=== PATIENT | male | born 1970 | race Hispanic/Latino ===

== ENCOUNTER 2018-12-05 13:05 | Emergency (ER) | payer OTHER ==
[2018-12-05 14:18] LABS: Absolute Lymphocytes (CBC) 1.6 K/uL (0.7-4.9); Basophils % 0.3 % (0-1.3); Hematocrit 42.8 % (39.6-49.0); Lymphocytes % 10.6 % (15.3-44.8); MPV 7.8 fL (7.6-11.3); RBC Red Blood Cell Count 6.01 M/uL (4.33-5.43)
[2018-12-05] MEDS ORDERED: NA CHLORIDE 0.9% 500 ML ONE (14:25)
[2018-12-05] MEDS ORDERED: ONDANSETRON 4 MG/2 ML VIAL ONE (14:25)
[2018-12-05] MEDS ORDERED: FAMOTIDINE 20 MG/2 ML VIAL IV ONE (14:25)
[2018-12-05] MEDS ORDERED: METHYLPREDNISOLONE 125 MG INJ ONE (14:25)
[2018-12-05] MEDS ORDERED: MORPHINE 2 MG/ML SYR ONE (14:25)
[2018-12-05 14:34] LABS: Albumin 4.1 g/dL (3.4-5.0); Bilirubin Direct 0.3 mg/dL (0-0.2); Bilirubin Total 1.5 mg/dL (0.2-1.0); Potassium 3.7 mmol/L (3.5-5.1)
--- NOTE | 2018-12-05 15:19 | RAD REPORT ---
EXAM DESCRIPTION: CT - Abdomen Pelvis W Contrast - 12/05/2018 2:58 pm CLINICAL HISTORY: ABD PAIN, history of Crohn's, history of of abdominal resection COMPARISON: None. TECHNIQUE: Biphasic, helical CT imaging of the abdomen and pelvis was performed following 100 ml non -ionic IV contrast. No oral contrast administered. All CT scans are performed using dose optimization technique as appropriate and may include automated exposure control or mA/KV adjustment according to patient size. FINDINGS: No suspicious findings in the lung bases. The liver, spleen, and pancreas show no suspicious findings. Gallbladder and biliary tree are also wi thout suspicious finding. Symmetric renal function is seen with no hydronephrosis or suspicious renal mass. No pyelonephritis o r acute parenchymal process. No bladder abnormalities. No adrenal abnormalities. No mass or bulky lymphadenopathy. Fat extends into the origin of the left inguinal canal. No suspicious bony findings. Large amount of retained fluid is present distending the stomach. No gastric wall thickening or mass. No gastric outlet obstruction. Duodenum is normal in size. No appendicitis findings. The appendix ma y be absent. No acute colon finding identifiable. No significant jejunum finding seen. There is dilat ion of the ileum. The distal ileum over 10-15 centimeter shows wall thickening with stranding in the adjacent fat. The terminal ileum is normal in diameter but does show circumferential wall thickening. There is stranding in this region as well. Cecum does not appear to be involved. IMPRESSION: Small bowel obstruction pattern is evident involving the ileum. 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 This would be consistent with active Crohn 's disease. Retained fluid dilating the stomach likely gastroparesis. No free air, abscess or surgically emergent finding.
--- NOTE | 2018-12-05 15:54 | ER ---
Nurse's Notes [facility] Name: Dank Helton Age: 48 yrs Sex: Male : 1970 Arrival Date: 12/05/2018 Time: 13:10 Bed 15 Private MD: Diagnosis: Crohn's disease of both small and large intestine with intestinal obstruction Presentation: 12/05 13:27 Presenting complaint: N/V/D, abdominal pain, and palpitations since this morning. hb Denies chest pain/SOB. Not tolerating fluids. Hx of Crohn's, last flare up was in 2013. Transition of care: patient was not received from another setting of care. Onset of symptoms was December 04, 2018. Risk Assessment: Do you want to hurt yourself or someone else? Patient reports no desire to harm self or others. Initial Sepsis Screen: Does the patient meet any 2 criteria? No. Patient's initial sepsis screen is negative. Does the patient have a suspected source of infection? No. Patient's initial sepsis screen is negative. Care prior to arrival: None. 13:27 Method Of Arrival: Ambulatory hb 13:27 Acuity: NITA 3 hb Historical: - Allergies: 13:29 No Known Allergies; hb - Home Meds: 13:29 None [Active]; hb - PMHx: 13:29 Crohn's; hb - PSHx: 13:29 Abdominal resection; hb - Immunization history:: Adult Immunizations up to date. - Social history:: Smoking status: Patient/guardian denies using tobacco. - Ebola Screening: : No symptoms or risks identified at this time. Screenin:22 Abuse screen: Denies threats or abuse. Denies injuries from another. Nutritional ph screening: No deficits noted. Tuberculosis screening: No symptoms or risk factors identified. Fall Risk None identified. Assessment: 14:00 General: Appears in no apparent distress. uncomfortable, slender, well groomed, ph Behavior is calm, cooperative, appropriate for age, Denies fever. Pain: Complains of pain in left upper quadrant and left lower quadrant. Neuro: Level of Consciousness is awake, alert, obeys commands, Oriented to person, place, time, situation. Cardiovascular: Capillary refill < 3 seconds in bilateral fingers Patient's skin is warm and dry. Respiratory: Airway is patent Respiratory effort is even, unlabored. GI: Abdomen is flat, non-distended, Bowel sounds present X 4 quads. Abdomen is tender to palpation in left upper quadrant and left lower quadrant Reports gaseousness, nausea, Patient currently denies diarrhea, vomiting. Derm: Skin is intact, is healthy with good turgor, Skin is pink, warm \T\ dry. Musculoskeletal: Circulation, motion, and sensation intact. Range of motion: intact in all extremities. 15:00 Reassessment: Patient appears in no apparent distress at this time. Patient and/or ph family updated on plan of care and expected duration. Pain level reassessed. Patient is alert, oriented x 3, equal unlabored respirations, skin warm/dry/pink. 16:00 Reassessment: Patient appears in no apparent distress at this time. Patient and/or ph family updated on plan of care and expected duration. Pain level reassessed. Patient is alert, oriented x 3, equal unlabored respirations, skin warm/dry/pink. 17:20 Reassessment: Patient appears in no apparent distress at this time. Patient and/or ph family updated on plan of care and expected duration. Pain level reassessed. Patient is alert, oriented x 3, equal unlabored respirations, skin warm/dry/pink. Report called to Travis BRAN at [facility], transfer form signed, awaiting EMS for transport. 18:20 Reassessment: Patient appears in no apparent distress at this time. Patient and/or ph family updated on plan of care and expected duration. Pain level reassessed. Patient is alert, oriented x 3, equal unlabored respirations, skin warm/dry/pink. Pt resting comfortably, awaiting EMS for transfer. 19:30 Reassessment: Patient appears in no apparent distress at this time. Patient is alert, lp1 oriented x 3, equal unlabored respirations, skin warm/dry/pink. Patient and aware of pending transfer to [facility] Patient denies pain at this time. 19:54 Reassessment: [facility] at bedside for transfer. lp1 Vital Signs: 13:29 BP 129 / 95; Pulse 77; Resp 16; Temp 97.9; Pulse Ox 100% on R/A; Weight 61.23 kg; hb Height 5 ft. 3 in. (160.02 cm); Pain 7/10; 14:41 BP 118 / 86; Pulse 78; Resp 17; Temp 98.3(O); Pulse Ox 98% on R/A; mh5 15:43 BP 112 / 79; Pulse 63; Resp 16; Temp 98.5(O); Pulse Ox 99% on R/A; mh5 17:07 BP 121 / 86; Pulse 65; Resp 18; Temp 97.8; Pulse Ox 99% ; ph 18:21 BP 121 / 76; Pulse 64; Resp 18; Pulse Ox 99% on R/A; ph 19:30 BP 116 / 74; Pulse 64; Resp 18; Pulse Ox 98% on R/A; lp1 19:58 BP 111 / 76; Pulse 78; Resp 16; Pulse Ox 98% on R/A; lp1 13:29 Body Mass Index 23.91 (61.23 kg, 160.02 cm) hb ED Course: 13:10 Patient arrived in ED. mr 13:28 Triage completed. hb 13:29 Arm band placed on. hb 13:39 Nirmal Park MD is Attending Physician. kdr 13:42 Lexii Dotson RN is Primary Nurse. ph 14:08 Initial lab(s) drawn, by de, sent to lab. Inserted saline lock: 20 gauge in right mh5 antecubital area, using aseptic technique. Blood collected. 14:09 Patient has correct armband on for positive identification. Placed in gown. Bed in low mh5 position. Call light in reach. Adult w/ patient. Warm blanket given. Pulse ox on. NIBP on. 14:09 Basic Metabolic Panel Sent. [facility] 14:09 CBC with Diff Sent. [facility] 14:09 Creatinine for Radiology Sent. [facility] 14:09 Hepatic Function Sent. [facility] 14:09 Lipase Sent. [facility] 15:03 CT Abd/Pelvis - IV Contrast Only In Process Unspecified. EDMS 15:22 Urine collected: clean catch specimen, clear. 5 18:22 No provider procedures requiring assistance completed. Patient transferred, IV remains ph in place. Administered Medications: 14:45 Drug: Zofran 4 mg Route: IVP; Site: right antecubital; ph 17:22 Follow up: Response: No adverse reaction; Nausea is decreased ph 14:45 Drug: NS 0.9% 500 ml Route: IV; Rate: bolus; Site: right antecubital; ph 17:22 Follow up: Response: No adverse reaction; IV Status: Completed infusion ph 14:46 Drug: SOLU-Medrol 125 mg Route: IVP; Site: right antecubital; ph 17:22 Follow up: Response: No adverse reaction ph 14:47 Drug: Pepcid 20 mg Route: IVP; Site: right antecubital; ph 17:22 Follow up: Response: No adverse reaction ph 14:48 Drug: morphine 2 mg {Note: RASS 0.} Route: IVP; Site: right antecubital; ph 15:15 Follow up: Response: No adverse reaction; Pain is decreased; RASS: Drowsy (-1) ph 16:55 Drug: LevaQUIN 500 mg Volume: 100 ml; Route: IVPB; Infused Over: 60 mins; Site: right ph antecubital; 18:00 Follow up: Response: No adverse reaction; IV Status: Completed infusion ph 17:08 Drug: Flagyl 500 mg Volume: 100 ml; Route: IVPB; Rate: 200 ml/hr; Infused Over: 30 ph mins; Site: right antecubital; 17:40 Follow up: Response: No adverse reaction; IV Status: Completed infusion ph Outcome: 15:53 ER care complete, transfer ordered by . kdr 19:57 Condition: stable lp1 19:57 Instructed on the need for transfer. 19:58 Transferred by ground EMS to [facility], Transfer form completed. lp1 X-rays sent w/ patient. Note: By [facility] Medic 56 20:00 Patient left the ED. lp1 Signatures: Dispatcher [employer] EDMS Nirmal Park MD MD kdr Rivera, Mary mr Rosa Perrin, RN RN lp1 Lexii Dotson RN RN Lizet Patel RN RN Tamara Boykin [facility] Corrections: (The following items were deleted from the chart) 13:32 13:27 Presenting complaint: N/V/D, abdominal pain, and palpitations since this morning. hb Denies chest pain/SOB. Not tolerating fluids hb 14:58 04:47 Pepcid 20 mg IVP in right antecubital ph ph
--- NOTE | 2018-12-05 15:56 | EDPHYS ---
Physician Documentation [facility] Name: Dank Helton Age: 48 yrs Sex: Male : 1970 Arrival Date: 12/05/2018 Time: 13:10 Bed 15 Private MD: ED Physician Nirmal Park HPI: 12/05 18:30 This 48 yrs old Male presents to ER via Ambulatory with complaints of kdr Abdominal Pain. 18:30 The patient presents with abdominal pain in the epigastric area, that is diffuse. kdr Onset: The symptoms/episode began/occurred this morning. The symptoms do not radiate. Associated signs and symptoms: Pertinent positives: nausea, vomiting, and diarrhea, nausea and vomiting. The symptoms are described as achy, crampy, intermittent, vague. Modifying factors: The symptoms are alleviated by nothing, remaining still, the symptoms are aggravated by movement, touching the area. Severity of pain: At its worst the pain was moderate severe. The patient has experienced similar episodes in the past, chronically, Last time was about six years ago. The patient has not recently seen a physician. Historical: - Allergies: 13:29 No Known Allergies; hb - Home Meds: 13:29 None [Active]; hb - PMHx: 13:29 Crohn's; hb - PSHx: 13:29 Abdominal resection; hb - Immunization history:: Adult Immunizations up to date. - Social history:: Smoking status: Patient/guardian denies using tobacco. - Ebola Screening: : No symptoms or risks identified at this time. ROS: 18:30 Constitutional: Negative for fever, chills, and weight loss, Eyes: Negative for injury, kdr pain, redness, and discharge, ENT: Negative for injury, pain, and discharge, Neck: Negative for injury, pain, and swelling, Cardiovascular: Negative for chest pain, palpitations, and edema, Respiratory: Negative for shortness of breath, cough, wheezing, and pleuritic chest pain, Back: Negative for injury and pain, : Negative for injury, bleeding, discharge, and swelling, MS/Extremity: Negative for injury and deformity, Skin: Negative for injury, rash, and discoloration, Neuro: Negative for headache, weakness, numbness, tingling, and seizure activity. Psych: Negative for depression, anxiety, suicide ideation, homicidal ideation, and hallucinations, Allergy/Immunology: Negative for hives, rash, and allergies, Endocrine: Negative for neck swelling, polydipsia, polyuria, polyphagia, and marked weight changes, Hematologic/Lymphatic: Negative for swollen nodes, abnormal bleeding, and unusual bruising. 18:30 Abdomen/GI: Positive for abdominal pain, nausea, vomiting, and diarrhea, of the abdomen diffusely. Exam: 18:30 Constitutional: This is a well developed, well nourished patient who is awake, alert, kdr and in no acute distress. Head/Face: Normocephalic, atraumatic. Eyes: Pupils equal round and reactive to light, extra-ocular motions intact. Lids and lashes normal. Conjunctiva and sclera are non-icteric and not injected. Cornea within normal limits. Periorbital areas with no swelling, redness, or edema. Neck: Trachea midline, no thyromegaly or masses palpated, and no cervical lymphadenopathy. Supple, full range of motion without nuchal rigidity, or vertebral point tenderness. No Meningismus. Chest/axilla: Normal chest wall appearance and motion. Nontender with no deformity. No lesions are appreciated. Cardiovascular: Regular rate and rhythm with a normal S1 and S2. No gallops, murmurs, or rubs. Normal PMI, no JVD. No pulse deficits. Respiratory: Lungs have equal breath sounds bilaterally, clear to auscultation and percussion. No rales, rhonchi or wheezes noted. No increased work of breathing, no retractions or nasal flaring. Back: No spinal tenderness. No costovertebral tenderness. Full range of motion. Skin: Warm, dry with normal turgor. Normal color with no rashes, no lesions, and no evidence of cellulitis. MS/ Extremity: Pulses equal, no cyanosis. Neurovascular intact. Full, normal range of motion. Neuro: Awake and alert, GCS 15, oriented to person, place, time, and situation. Cranial nerves II-XII grossly intact. Motor strength 5/5 in all extremities. Sensory grossly intact. Cerebellar exam normal. Normal gait. Psych: Awake, alert, with orientation to person, place and time. Behavior, mood, and affect are within normal limits. 18:30 Abdomen/GI: Inspection: abdomen appears normal, Bowel sounds: diminished, Palpation: soft, moderate abdominal tenderness, rebound tenderness, is elicited in all quadrants, voluntary guarding, is elicited in all quadrants. Vital Signs: 13:29 BP 129 / 95; Pulse 77; Resp 16; Temp 97.9; Pulse Ox 100% on R/A; Weight 61.23 kg; hb Height 5 ft. 3 in. (160.02 cm); Pain 7/10; 14:41 BP 118 / 86; Pulse 78; Resp 17; Temp 98.3(O); Pulse Ox 98% on R/A; mh5 15:43 BP 112 / 79; Pulse 63; Resp 16; Temp 98.5(O); Pulse Ox 99% on R/A; mh5 17:07 BP 121 / 86; Pulse 65; Resp 18; Temp 97.8; Pulse Ox 99% ; ph 18:21 BP 121 / 76; Pulse 64; Resp 18; Pulse Ox 99% on R/A; ph 19:30 BP 116 / 74; Pulse 64; Resp 18; Pulse Ox 98% on R/A; lp1 19:58 BP 111 / 76; Pulse 78; Resp 16; Pulse Ox 98% on R/A; lp1 13:29 Body Mass Index 23.91 (61.23 kg, 160.02 cm) hb MDM: 15:53 Patient medically screened. kdr 18:30 Data reviewed: vital signs, nurses notes, lab test result(s), radiologic studies. kdr Counseling: I had a detailed discussion with the patient and/or guardian regarding: the historical points, exam findings, and any diagnostic results supporting the discharge/admit diagnosis, lab results, radiology results, the need to transfer to another facility. Physician consultation: Jones Tan MD regarding consult, patient's condition, after a discussion of the case, a recommendation for transfer for higher level of care is made. 12/05 13:52 Order name: Basic Metabolic Panel; Complete Time: 15:44 kdr 12/05 13:52 Order name: CBC with Diff; Complete Time: 15:44 kdr 12/05 13:52 Order name: Creatinine for Radiology; Complete Time: 15:44 kdr 12/05 13:52 Order name: Hepatic Function; Complete Time: 15:44 kdr 12/05 13:52 Order name: Lipase; Complete Time: 15:44 kdr 12/05 15:16 Order name: Urine Dipstick--Ancillary (enter results); Complete Time: 16:30 bd 12/05 13:52 Order name: CT Abd/Pelvis - IV Contrast Only; Complete Time: 15:44 kdr 12/05 13:52 Order name: IV Saline Lock; Complete Time: 14:09 kdr 12/05 13:52 Order name: Labs collected and sent; Complete Time: 14:09 kdr 12/05 13:52 Order name: Urine Dipstick-Ancillary (obtain specimen); Complete Time: 17:22 kdr Administered Medications: 14:45 Drug: Zofran 4 mg Route: IVP; Site: right antecubital; ph 17:22 Follow up: Response: No adverse reaction; Nausea is decreased ph 14:45 Drug: NS 0.9% 500 ml Route: IV; Rate: bolus; Site: right antecubital; ph 17:22 Follow up: Response: No adverse reaction; IV Status: Completed infusion ph 14:46 Drug: SOLU-Medrol 125 mg Route: IVP; Site: right antecubital; ph 17:22 Follow up: Response: No adverse reaction ph 14:47 Drug: Pepcid 20 mg Route: IVP; Site: right antecubital; ph 17:22 Follow up: Response: No adverse reaction ph 14:48 Drug: morphine 2 mg {Note: RASS 0.} Route: IVP; Site: right antecubital; ph 15:15 Follow up: Response: No adverse reaction; Pain is decreased; RASS: Drowsy (-1) ph 16:55 Drug: LevaQUIN 500 mg Volume: 100 ml; Route: IVPB; Infused Over: 60 mins; Site: right ph antecubital; 18:00 Follow up: Response: No adverse reaction; IV Status: Completed infusion ph 17:08 Drug: Flagyl 500 mg Volume: 100 ml; Route: IVPB; Rate: 200 ml/hr; Infused Over: 30 ph mins; Site: right antecubital; 17:40 Follow up: Response: No adverse reaction; IV Status: Completed infusion ph Disposition: 12/05/18 15:[address] [facility]. Diagnosis is Crohn's disease of both small and large intestine with intestinal obstruction. - Reason for transfer: Higher level of care. - Accepting physician is Hospitalist. - Condition is Serious. - Problem is an acute exacerbation. - Symptoms have improved. Signatures: Dispatcher [employer] EDGA Nirmal Park MD MD kdr Rosa Perrin RN RN lp1 Lexii Dotson RN RN Lizet Patel RN RN Corrections: (The following items were deleted from the chart) 20:00 15:53 12/05/2018 15:[address] [facility]. Diagnosis is lp1 Crohn's disease of both small and large intestine with intestinal obstruction. Reason for transfer: Higher level of care. Accepting physician is Hospitalist. Condition is Serious. Problem is an acute exacerbation. Symptoms have improved. kdr
[2018-12-05 16:14] LABS: Urine Blood TRACE (NEG); Urine Glucose NEGATIVE (NEG); Urine Protein NEGATIVE (NEG); Urine Specific Gravity 1.015 (1.005-1.030)
[2018-12-05] MEDS ORDERED: Levofloxacin500mg IV 500 MG/100 ML BAG IV ONE (16:59)
[2018-12-05] MEDS ORDERED: METRONIDAZOLE 500mg IVPB 500 MG/100 ML BAG IV ONE (17:00)
[2018-12-06 00:36] VITALS: TEMP 97.8
[2018-12-06 00:39] VITALS: O2SAT 98
[2018-12-06 00:40] VITALS: BP 111/76
== END 2018-12-05 20:00 | disposition short-term general hospital (02) ==
LOC: ER 13:05
DX: K50.912 Crohn's disease, unspecified, with intestinal obstruction (principal)
CPT/HCPCS: 85025; 80048; 36415; 80076; 81003; 83690; 74177; Q9967; J2270; J2930; J2405; 96361; 96365; 96375; 99285

== ENCOUNTER 2019-07-19 19:46 | Emergency (ER) | payer OTHER ==
--- OUTSIDE RECORDS SUMMARY | 2019-07-19 19:48 | XMS REPORT ---
:1970 Author Organization [facility] t Address [address] [place] [address] Care Team Providers Name Role Phone JAMISON FERNANDEZ Unavailable Unavailable Problems This patient has no known problems. Allergies, Adverse Reactions, Alerts This patient has no known allergies or adverse reactions. Medications This patient has no known medications. Results Test Description Test Time Test Comments Text Results Atomic Results Result Comments TISSUE EXAM 2018-12-16 12:17:00 Surgical Pathology Re port Case: [id number] Authorizing Provider: Vaughn Calvo Collected: [id number] Ordering Location: [address] Received: [id number] SERVICE Pathologist: Mago Weeks MD Specimens: A) - Biopsy, Te rminal Ileum, terminal ileum bx B) - Cecu m, cecum bx C) - Large Intestine, Colon - Right/Ascending, ascending c olon bx D) - Large Intestine, Colon - Transverse, transverse colon bx E) - Large Intestine, Colon - Left/Descending, descending / sigmoid colon bx F) - Rectu m, rectum bx A. TERMINAL ILEUM, BIOPSY : - NONSPECIFIC ACTIVE ILEITIS (SEE COMMENT) B. COLON, CECUM, BIOPSY: - NONSPECIFIC ACTIV E COLITIS (SEE COMMENT)C. COLON, RIGHT/ASCE NDING, BIOPSY: - NO SIGNIFICANT HISTOPATHOLOGIC CHANGED. COLON, TRANSVERSE, BIOPSY: - NO SI GNIFICANT HISTOPATHOLOGIC CHANGEE. COL ON, DESCENDING/SIGMOID, BIOPSY: - NO SIGNIFICANT HISTOPATHOLOGIC CHANGEF. REC KING, BIOPSY: - NO SIGNIFICANT HISTOPATHOLOGIC CHANGE Signing Pathologist Direct Phone Kacy e: [phone] s igned by Mago Gentile MD on 12/16/2018 at 12:17 PMA-B. The ileal biopsy shows active in flammation. Mild crypt distortion and villous blunting are seen, however other features of ch ronicity such as granulomas and metaplastic c hanges are not seen. In specimen B, except for a rare bifid crypt, no other features of chronicity are seen.C-F. There is no evidence of active or chronic injury.The histologic changes are not c lassic for chronic inflammatory bowel disease, however the same cannot be excluded if this r epresents histologic resolution after treatment. Clinical and endoscopic correlation is recommended.[id number] : Colonoscopy, colon with ANESPre and postop diag nosis: Crohn's disease with complication, u nspecified gastrointestinal tract locat ion. A. Biopsy, terminal ileum, terminal ile um bx; B. Cecum, cecum biopsy; C. Large intes mando, colon, right/ascending, ascending c olon bx; D. Large intestine, colon - transvers e, transverse colon bx; E. Large intestine, colo n - left/descending, descending/sigmoid colon bx; F. Rectum, rectum bxA. Received in formalin la beled with the patient's name, accession nu mber and "biopsy, terminal ileum, terminal ile um bx" is a 0.6 x 0.3 x 0.2 cm aggregate of multip le pieces of chan-brown, irregular, mucosa l-covered tissues ranging from 0.3 x 0.3 x 0.2 cm to 0.1 x 0.1 x 0.1 cm. The specimen is subm itted in toto following filtration in paul ette A1. B. Received in formalin labeled with the patient's name, accession number and "cecum, cecum bx" are two pieces of chan-brown, irregul ar, mucosal-covered tissue measuring 0.3 x 0.3 x 0.1 cm and 0.2 x 0.1 x 0.1 cm. The specimen is reid bmitted in toto following filtration in paul ette B1. C. Received in formalin labeled with the patient's name, accession number and "large intestine, colon - right/ascending, ascending c olon bx" is a 0.6 x 0.5 x 0.1 cm aggregate of fi ve pieces of chan-brown, irregular, mucosa l-covered tissue. The specimen is submitted in tot o following filtration in cassette C1. D . Received in formalin labeled with the donaldo norris's name, accession number and "large intestine, colon - transverse, transverse colon bx" are three pieces of chan-brown, irregular, muc osal-covered tissue ranging from 0.4 x 0.2 x 0.2 cm to 0.3 x 0.1 x 0.1 cm and 0.7 x 0.3 x 0.2 c m in aggregate. The specimen is submitted in tot o following filtration in cassette D1. E . Received in formalin labeled with the pa tient's name, accession number and "large intestine, colon - left/descending, descending/ sigmoid colon bx" is a 0.9 x 0.3 x 0.1 cm aggrega te of multiple pieces of chan-brown, irregular, muc osal-covered tissue The specimen is submitted in toto following filtration in cassette E1. F . Received in formalin labeled with the pa chrisnt's name, accession number and "rectum , rectum bx" is a 0.8 x 0.3 x 0.1 cm aggregate of four pieces of chan-brown, irregular, mucosa l-covered tissue. The specimen is submitted in toto following filtration in cassette F1. SS/plPerformed.The interpretation of this case included the use of immunohistochemistry or spec ial stains.Control Slides Examined: In-house k nown positive controls were evaluated chance burnett with the test tissue. These control slide s run alongside of the patients sample show tim ropriate staining. Internal positive and negati ve controls when available are evaluated Immu nohistochemistry technical testing was perfor med at [facility] where it was developed and its per formance characteristics were determi rebeka. It has not been cleared or approved by the U .S. Food and Drug Administration. The FDA has determined that such clearance or approval is not necessary. The test is used for clinical purpose s. It should not be regarded as investigational or for research. This laboratory is certified unde r the Clinical Laboratory Improvement Amend ments of 1988 (CLIA-88) as qualified to pe rform high complexity clinical laboratory testing. OVA AND PARASITE EXAMINATION 2018-12-11 07:34:00 Test Item Value Reference Range Comments DIRECT SMEAR - O\\T\\P (BEAKER) No ova or parasites seen No ova or parasites seen (test code = 196) CONCENTRATE SMEAR - O\\T\\P No ova or parasites seen No ova or par asites seen (BEAKER) (test code = 247) TRICHROME SMEAR - O\\T\\P (BEAKER) No ova or parasites seen No ova or parasites seen (test code = 248) STOOL CULTURE + SHIGA [id number] 12:10:00 Test Item Value Reference Range Comments CULTURE (BEAKER) (test code No Salmonella, Shigella or = 1095) Campylobacter isolated Unable to test for Shiga Toxin 1 due to insufficient growth of specimen.Unable to test for Shiga Toxin 2 due to insufficient growth of specimen.CBC W/PLT COUNT & AUTO [id number] 08:52:00 Test Item Value Reference Range Comments WHITE BLOOD CELL COUNT (BEAKER) (test code = 7.9 K/ L 3.5 -10.5 775) RED BLOOD CELL COUNT (BEAKER) (test code = 761) 5.57 M/ L 4.63-6.08 HEMOGLOBIN (BEAKER) (test code = 410) 12.9 GM/DL 13.7-17.5 HEMATOCRIT (BEAKER) (test code = 411) 41.1 % 40.1-51.0 MEAN CORPUSCULAR VOLUME (BEAKER) (test code = 73.8 fL 79 .0-92.2 753) MEAN CORPUSCULAR HEMOGLOBIN (BEAKER) (test code 23.2 pg 25.7-32.2 = 751) MEAN CORPUSCULAR HEMOGLOBIN CONC (BEAKER) (test 31.4 GM/DL 32.3-36.5 code = 752) RED CELL DISTRIBUTION WIDTH (BEAKER) (test code 14.6 % 11.6-14.4 = 412) PLATELET COUNT (BEAKER) (test code = 756) 254 K/CU MM 150-45 0 MEAN PLATELET VOLUME (BEAKER) (test code = 754) 10.2 fL 9.4-12.4 NUCLEATED RED BLOOD CELLS (BEAKER) (test code = 0 /100 WBC 0-0 413) NEUTROPHILS RELATIVE PERCENT (BEAKER) (test code 83 % = 429) LYMPHOCYTES RELATIVE PERCENT (BEAKER) (test code 15 % = 430) MONOCYTES RELATIVE PERCENT (BEAKER) (test code = 2 % 431) EOSINOPHILS RELATIVE PERCENT (BEAKER) (test code 0 % = 432) BASOPHILS RELATIVE PERCENT (BEAKER) (test code = 0 % 437) NEUTROPHILS ABSOLUTE COUNT (BEAKER) (test code = 6.54 K/ L 1.78-5.38 670) LYMPHOCYTES ABSOLUTE COUNT (BEAKER) (test code = 1.15 K/ L 1.32-3.57 414) MONOCYTES ABSOLUTE COUNT (BEAKER) (test code = 0.12 K/ L 0 .30-0.82 415) EOSINOPHILS ABSOLUTE COUNT (BEAKER) (test code = 0.00 K/ L 0.04-0.54 416) BASOPHILS ABSOLUTE COUNT (BEAKER) (test code = 0.01 K/ L 0 .01-0.08 417) IMMATURE GRANULOCYTES-RELATIVE PERCENT (BEAKER) 1 % 0-1 (test code = 2801) [id number] 08:41:00 Test Item Value Reference Range Comments PHOSPHORUS (BEAKER) (test code = 604) 3.7 mg/dL 2.3-4.7 [id number] 08:41:00 Test Item Value Reference Range Comments MAGNESIUM (BEAKER) (test code = 627) 2.0 mg/dL 1.6-2.6 COMPREHENSIVE METABOLIC [id number] 08:41:00 Test Item Value Reference Range Comments TOTAL PROTEIN (BEAKER) 6.6 gm/dL 6.0-8.3 (test code = 770) ALBUMIN (BEAKER) (test 3.8 g/dL 3.5-5.0 code = 1145) ALKALINE PHOSPHATASE 67 U/L 40-150 (BEAKER) (test code = 346) BILIRUBIN TOTAL (BEAKER) 2.4 mg/dL 0.2-1.2 (test code = 377) SODIUM (BEAKER) (test code 136 meq/L 136-145 = 381) POTASSIUM (BEAKER) (test 4.2 meq/L 3.5-5.1 code = 379) CHLORIDE (BEAKER) (test 106 meq/L 98-107 code = 382) CO2 (BEAKER) (test code = 22 meq/L 22-29 355) BLOOD UREA NITROGEN 11 mg/dL 7-21 (BEAKER) (test code = 354) CREATININE (BEAKER) (test 0.82 mg/dL 0.57-1.25 code = 358) GLUCOSE RANDOM (BEAKER) 109 mg/dL 70-105 (test code = 652) CALCIUM (BEAKER) (test 8.7 mg/dL 8.4-10.2 code = 697) AST (SGOT) (BEAKER) (test 14 U/L 5-34 code = 353) ALT (SGPT) (BEAKER) (test 12 U/L 6-55 code = 347) EGFR (BEAKER) (test code = 100 mL/min/1.73 sq ES TIMATED GFR IS NOT 1092) m ACCURATE CREA TININE CLEARANCE IN PRE DICTING GLOMERULAR FILTR ATION RATE. ESTIMATED GFR IS NOT APPLICABLE F OR DIALYSIS PATIENT S. Specimen slightly ictericHEPATITIS B [id number] 08:37:00 Test Item Value Reference Range Comments HEPATITIS B CORE TOTAL ANTIBODY (BEAKER) (test Nonreactive N onreactive code = 497) HEPATITIS B SURFACE ANTIBODY (BEAKER) (test code < mIU/mL <8.0 = 647) HEPATITIS B SURFACE ANTIGEN (2) (BEAKER) (test Nonreactive N onreactive code = 2585) HEPATITIS C [id number] 08:33:00 Test Item Value Reference Range Comments HEPATITIS C ANTIBODY (BEAKER) (test code = 367) Nonreactive Nonreactive [id number] 07:51:00 Test Item Value Reference Range Comments PHOSPHORUS (BEAKER) (test code = 604) 3.0 mg/dL 2.3-4.7 [id number] 07:51:00 Test Item Value Reference Range Comments MAGNESIUM (BEAKER) (test code = 627) 2.0 mg/dL 1.6-2.6 COMPREHENSIVE METABOLIC [id number] 07:51:00 Test Item Value Reference Range Comments TOTAL PROTEIN (BEAKER) 6.5 gm/dL 6.0-8.3 (test code = 770) ALBUMIN (BEAKER) (test 3.8 g/dL 3.5-5.0 code = 1145) ALKALINE PHOSPHATASE 64 U/L 40-150 (BEAKER) (test code = 346) BILIRUBIN TOTAL (BEAKER) 2.6 mg/dL 0.2-1.2 (test code = 377) SODIUM (BEAKER) (test code 140 meq/L 136-145 = 381) POTASSIUM (BEAKER) (test 3.7 meq/L 3.5-5.1 code = 379) CHLORIDE (BEAKER) (test 107 meq/L 98-107 code = 382) CO2 (BEAKER) (test code = 25 meq/L 22-29 355) BLOOD UREA NITROGEN 12 mg/dL 7-21 (BEAKER) (test code = 354) CREATININE (BEAKER) (test 0.93 mg/dL 0.57-1.25 code = 358) GLUCOSE RANDOM (BEAKER) 82 mg/dL 70-105 (test code = 652) CALCIUM (BEAKER) (test 8.7 mg/dL 8.4-10.2 code = 697) AST (SGOT) (BEAKER) (test 12 U/L 5-34 code = 353) ALT (SGPT) (BEAKER) (test 10 U/L 6-55 code = 347) EGFR (BEAKER) (test code = 87 mL/min/1.73 sq m E STIMATED GFR IS NOT 1092) ACCURATE CREA TININE CLEARANCE IN PRE DICTING GLOMERULAR FILTR ATION RATE. ESTIMATED GFR IS NOT APPLICABLE F OR DIALYSIS PATIENT S. Specimen slightly ictericCBC W/PLT COUNT & AUTO [id number] 06:27:00 Test Item Value Reference Range Comments WHITE BLOOD CELL COUNT (BEAKER) (test code = 8.2 K/ L 3.5 -10.5 775) RED BLOOD CELL COUNT (BEAKER) (test code = 761) 5.34 M/ L 4.63-6.08 HEMOGLOBIN (BEAKER) (test code = 410) 12.3 GM/DL 13.7-17.5 HEMATOCRIT (BEAKER) (test code = 411) 39.6 % 40.1-51.0 MEAN CORPUSCULAR VOLUME (BEAKER) (test code = 74.2 fL 79 .0-92.2 753) MEAN CORPUSCULAR HEMOGLOBIN (BEAKER) (test code 23.0 pg 25.7-32.2 = 751) MEAN CORPUSCULAR HEMOGLOBIN CONC (BEAKER) (test 31.1 GM/DL 32.3-36.5 code = 752) RED CELL DISTRIBUTION WIDTH (BEAKER) (test code 14.8 % 11.6-14.4 = 412) PLATELET COUNT (BEAKER) (test code = 756) 246 K/CU MM 150-45 0 MEAN PLATELET VOLUME (BEAKER) (test code = 754) 10.1 fL 9.4-12.4 NUCLEATED RED BLOOD CELLS (BEAKER) (test code = 0 /100 WBC 0-0 413) NEUTROPHILS RELATIVE PERCENT (BEAKER) (test code 48 % = 429) LYMPHOCYTES RELATIVE PERCENT (BEAKER) (test code 43 % = 430) MONOCYTES RELATIVE PERCENT (BEAKER) (test code = 7 % 431) EOSINOPHILS RELATIVE PERCENT (BEAKER) (test code 1 % = 432) BASOPHILS RELATIVE PERCENT (BEAKER) (test code = 1 % 437) NEUTROPHILS ABSOLUTE COUNT (BEAKER) (test code = 3.93 K/ L 1.78-5.38 670) LYMPHOCYTES ABSOLUTE COUNT (BEAKER) (test code = 3.51 K/ L 1.32-3.57 414) MONOCYTES ABSOLUTE COUNT (BEAKER) (test code = 0.56 K/ L 0 .30-0.82 415) EOSINOPHILS ABSOLUTE COUNT (BEAKER) (test code = 0.11 K/ L 0.04-0.54 416) BASOPHILS ABSOLUTE COUNT (BEAKER) (test code = 0.04 K/ L 0 .01-0.08 417) IMMATURE GRANULOCYTES-RELATIVE PERCENT (BEAKER) 0 % 0-1 (test code = 2801) STOOL PATH [id number] 15:52:00 Test Item Value Reference Range Comments PATHOGEN EXAM CHARGED (BEAKER) (test code = 2381) Done CMV PCR, [id number] 14:15:00 Test Item Value Reference Range Comments CMV VIRAL LOAD - NEGATIVE Negative or below the linear (BEAKER) (test code = 2558) range of the assay (<375 copies/mL) Cytomegalovirus (CMV) infection can cause significant disease in immunosuppressed patients. However,it is common for CMV to manifest as a limited infection which is of no clinical significance in immunosuppressed patients or in healthy individuals.Viral load measurements are helpful to identify clinical CMV infection and to guide the pre-emptive management of antiviral therapy. For treatment of CMVinfection due to reactivation in transplant recipients, a threshold between 4,000 and 5,000 copies/mL is suggested. For treatment of primary CMV infection, a lower threshold can be used.CMV infection may also be monitored using weekly serial measurements. Serial measurements of CMV DNA viral load canbe evaluated by identifying a 10-fold change, as well as assessing the CMV DNA viral load and the clinical context for each patient.The plasma CMV DNA viral load was detected using quantitative polymerase chain reaction and fluorescent monitoring of a specific hybridized probe. Genetic variation and ot her factors can affect the accuracy of nucleic acid testing. Therefore, the results should be interpreted in light of clinical data. A negative result may not exclude the presence of CMV disease.This test was developed and its performance characteristics determined by the [facility] Path ology Department, Section of Molecular Pathology. It has not been cleared or approved by the U.S. Food and Drug Administration (FDA), since FDA approval is not required for clinical use of the test. Validation was done as required by The Clinical Laboratory Improvement Amendments of 1988.BILIRUBIN, DIRECT 2018-12-07 11:14:00 Test Item Value Reference Range Comments BILIRUBIN DIRECT (BEAKER) (test code = 706) 0.8 mg/dL 0.1- 0.5 [id number] 07:13:00 Test Item Value Reference Range Comments PHOSPHORUS (BEAKER) (test code = 604) 3.3 mg/dL 2.3-4.7 [id number] 07:13:00 Test Item Value Reference Range Comments MAGNESIUM (BEAKER) (test code = 627) 2.1 mg/dL 1.6-2.6 COMPREHENSIVE METABOLIC [id number] 07:13:00 Test Item Value Reference Range Comments TOTAL PROTEIN (BEAKER) 6.4 gm/dL 6.0-8.3 (test code = 770) ALBUMIN (BEAKER) (test 3.7 g/dL 3.5-5.0 code = 1145) ALKALINE PHOSPHATASE 63 U/L 40-150 (BEAKER) (test code = 346) BILIRUBIN TOTAL (BEAKER) 2.5 mg/dL 0.2-1.2 (test code = 377) SODIUM (BEAKER) (test code 137 meq/L 136-145 = 381) POTASSIUM (BEAKER) (test 4.0 meq/L 3.5-5.1 code = 379) CHLORIDE (BEAKER) (test 106 meq/L 98-107 code = 382) CO2 (BEAKER) (test code = 24 meq/L 22-29 355) BLOOD UREA NITROGEN 15 mg/dL 7-21 (BEAKER) (test code = 354) CREATININE (BEAKER) (test 0.95 mg/dL 0.57-1.25 code = 358) GLUCOSE RANDOM (BEAKER) 94 mg/dL 70-105 (test code = 652) CALCIUM (BEAKER) (test 8.5 mg/dL 8.4-10.2 code = 697) AST (SGOT) (BEAKER) (test 10 U/L 5-34 code = 353) ALT (SGPT) (BEAKER) (test 10 U/L 6-55 code = 347) EGFR (BEAKER) (test code = 85 mL/min/1.73 sq m E STIMATED GFR IS NOT 1092) ACCURATE CREA TININE CLEARANCE IN PRE DICTING GLOMERULAR FILTR ATION RATE. ESTIMATED GFR IS NOT APPLICABLE F OR DIALYSIS PATIENT S. Specimen slightly ictericCBC W/PLT COUNT & AUTO [id number] 06:05:00 Test Item Value Reference Range Comments WHITE BLOOD CELL COUNT (BEAKER) (test code = 10.3 K/ L 3.5 -10.5 775) RED BLOOD CELL COUNT (BEAKER) (test code = 761) 5.02 M/ L 4.63-6.08 HEMOGLOBIN (BEAKER) (test code = 410) 11.8 GM/DL 13.7-17.5 HEMATOCRIT (BEAKER) (test code = 411) 36.7 % 40.1-51.0 MEAN CORPUSCULAR VOLUME (BEAKER) (test code = 73.1 fL 79 .0-92.2 753) MEAN CORPUSCULAR HEMOGLOBIN (BEAKER) (test code 23.5 pg 25.7-32.2 = 751) MEAN CORPUSCULAR HEMOGLOBIN CONC (BEAKER) (test 32.2 GM/DL 32.3-36.5 code = 752) RED CELL DISTRIBUTION WIDTH (BEAKER) (test code 15.0 % 11.6-14.4 = 412) PLATELET COUNT (BEAKER) (test code = 756) 231 K/CU MM 150-45 0 MEAN PLATELET VOLUME (BEAKER) (test code = 754) 9.5 fL 9.4-12.4 NUCLEATED RED BLOOD CELLS (BEAKER) (test code = 0 /100 WBC 0-0 413) NEUTROPHILS RELATIVE PERCENT (BEAKER) (test code 67 % = 429) LYMPHOCYTES RELATIVE PERCENT (BEAKER) (test code 26 % = 430) MONOCYTES RELATIVE PERCENT (BEAKER) (test code = 6 % 431) EOSINOPHILS RELATIVE PERCENT (BEAKER) (test code 0 % = 432) BASOPHILS RELATIVE PERCENT (BEAKER) (test code = 0 % 437) NEUTROPHILS ABSOLUTE COUNT (BEAKER) (test code = 6.95 K/ L 1.78-5.38 670) LYMPHOCYTES ABSOLUTE COUNT (BEAKER) (test code = 2.66 K/ L 1.32-3.57 414) MONOCYTES ABSOLUTE COUNT (BEAKER) (test code = 0.64 K/ L 0 .30-0.82 415) EOSINOPHILS ABSOLUTE COUNT (BEAKER) (test code = 0.01 K/ L 0.04-0.54 416) BASOPHILS ABSOLUTE COUNT (BEAKER) (test code = 0.02 K/ L 0 .01-0.08 417) IMMATURE GRANULOCYTES-RELATIVE PERCENT (BEAKER) 1 % 0-1 (test code = 2801) [id number] 07:12:00 Test Item Value Reference Range Comments PHOSPHORUS (BEAKER) (test code = 604) 3.8 mg/dL 2.3-4.7 [id number] 07:12:00 Test Item Value Reference Range Comments MAGNESIUM (BEAKER) (test code = 627) 1.9 mg/dL 1.6-2.6 COMPREHENSIVE METABOLIC [id number] 07:12:00 Test Item Value Reference Range Comments TOTAL PROTEIN (BEAKER) 6.8 gm/dL 6.0-8.3 (test code = 770) ALBUMIN (BEAKER) (test 3.8 g/dL 3.5-5.0 code = 1145) ALKALINE PHOSPHATASE 70 U/L 40-150 (BEAKER) (test code = 346) BILIRUBIN TOTAL (BEAKER) 2.0 mg/dL 0.2-1.2 (test code = 377) SODIUM (BEAKER) (test code 136 meq/L 136-145 = 381) POTASSIUM (BEAKER) (test 4.0 meq/L 3.5-5.1 code = 379) CHLORIDE (BEAKER) (test 107 meq/L 98-107 code = 382) CO2 (BEAKER) (test code = 21 meq/L 22-29 355) BLOOD UREA NITROGEN 13 mg/dL 7-21 (BEAKER) (test code = 354) CREATININE (BEAKER) (test 0.87 mg/dL 0.57-1.25 code = 358) GLUCOSE RANDOM (BEAKER) 110 mg/dL 70-105 (test code = 652) CALCIUM (BEAKER) (test 8.9 mg/dL 8.4-10.2 code = 697) AST (SGOT) (BEAKER) (test 13 U/L 5-34 code = 353) ALT (SGPT) (BEAKER) (test 10 U/L 6-55 code = 347) EGFR (BEAKER) (test code = 94 mL/min/1.73 sq m E STIMATED GFR IS NOT 1092) ACCURATE CREA TININE CLEARANCE IN PRE DICTING GLOMERULAR FILTR ATION RATE. ESTIMATED GFR IS NOT APPLICABLE F OR DIALYSIS PATIENT S. Specimen slightly ictericC-REACTIVE [id number] 07:12:00 Test Item Value Reference Range Comments C-REACTIVE PROTEIN (BEAKER) (test code = 676) 1.08 mg/dL 0. 00-0.50 CBC W/PLT COUNT & AUTO [id number] 06:58:00 Test Item Value Reference Range Comments WHITE BLOOD CELL COUNT (BEAKER) (test code = 15.6 K/ L 3.5 -10.5 775) RED BLOOD CELL COUNT (BEAKER) (test code = 761) 5.68 M/ L 4.63-6.08 HEMOGLOBIN (BEAKER) (test code = 410) 13.1 GM/DL 13.7-17.5 HEMATOCRIT (BEAKER) (test code = 411) 41.5 % 40.1-51.0 MEAN CORPUSCULAR VOLUME (BEAKER) (test code = 73.1 fL 79 .0-92.2 753) MEAN CORPUSCULAR HEMOGLOBIN (BEAKER) (test code 23.1 pg 25.7-32.2 = 751) MEAN CORPUSCULAR HEMOGLOBIN CONC (BEAKER) (test 31.6 GM/DL 32.3-36.5 code = 752) RED CELL DISTRIBUTION WIDTH (BEAKER) (test code 14.7 % 11.6-14.4 = 412) PLATELET COUNT (BEAKER) (test code = 756) 253 K/CU MM 150-45 0 MEAN PLATELET VOLUME (BEAKER) (test code = 754) 9.5 fL 9.4-12.4 NUCLEATED RED BLOOD CELLS (BEAKER) (test code = 0 /100 WBC 0-0 413) NEUTROPHILS RELATIVE PERCENT (BEAKER) (test code 84 % = 429) LYMPHOCYTES RELATIVE PERCENT (BEAKER) (test code 11 % = 430) MONOCYTES RELATIVE PERCENT (BEAKER) (test code = 4 % 431) EOSINOPHILS RELATIVE PERCENT (BEAKER) (test code 0 % = 432) BASOPHILS RELATIVE PERCENT (BEAKER) (test code = 0 % 437) NEUTROPHILS ABSOLUTE COUNT (BEAKER) (test code = 13.12 K/ L 1.78-5.38 670) LYMPHOCYTES ABSOLUTE COUNT (BEAKER) (test code = 1.75 K/ L 1.32-3.57 414) MONOCYTES ABSOLUTE COUNT (BEAKER) (test code = 0.59 K/ L 0 .30-0.82 415) EOSINOPHILS ABSOLUTE COUNT (BEAKER) (test code = 0.00 K/ L 0.04-0.54 416) BASOPHILS ABSOLUTE COUNT (BEAKER) (test code = 0.03 K/ L 0 .01-0.08 417) IMMATURE GRANULOCYTES-RELATIVE PERCENT (BEAKER) 1 % 0-1 (test code = 2801)
--- OUTSIDE RECORDS SUMMARY | 2019-07-19 19:49 | XMS REPORT | Summary of Care ---
:1970 Author Organization [facility] [place] [address] Care Team Providers Name Role Phone Unavailable Primary Care Provider Unavailable Reason for Referral Radiology Services (Routine) Status Reason Specialty Diagnoses / Procedures Referred By Huma omalley Referred To Contact Pending Radiology Diagnoses Crohn's disease of both small and large intestine with fistula (HCCode) Estela Crenshaw MD Procedures MRI ENTEROGRAPHY (SMALL BOWEL EVALUATION) [address] [place], [place] [address] Phone: Reason for Visit Reason Comments Initial Consultation Inflammatory Bowel Disease Crohn's Disease Encounter Details Date Type Department Care Team Description 01/03/2019 Office Visit [facility] Estela Crenshaw MD Initial Consultation; Medicine [address] Inflammatory Bowel Gastroenterology [address] Disease (Crohn's [address] [place] [address] Disease) 8th Floor, [address] [phone] [place] [address] Allergies No Known Allergiesdocumented as of this encounter (statuses as of 01/03/2019) Medications Medication Sig Dispensed Refills Start Date End Date Status predniSONE Take 5 Tabs 150 Tab 0 01/03/2019 Active (DELTASONE) 5 MG by mouth tablet daily. Taper by 5 mg every week predniSONE 30 mg po qd 0 12/09/2018 01/03/2019 Disco ntinued (DELTASONE) 10 MG tablet documented as of this encounter (statuses as of 01/03/2019) Active Problems Not on filedocumented as of this encounter (statuses as of 01/03/2019) Social History Tobacco Use Types Packs/Day Years Used Date Never Smoker Smokeless Tobacco: Never Used Sex Assigned at Date Recorded Not on file Job Start Date Occupation Industry Not on file Not on file Not on file Travel History Travel Start Travel End No recent travel history available. documented as of this encounter Last Filed Vital Signs Vital Sign Reading Time Taken Comments Blood Pressure 90/60 01/03/2019 10:51 AM CDT Pulse 62 01/03/2019 10:51 AM CDT Temperature 36.8 C (98.2 F) 01/03/2019 10:51 AM CDT Respiratory Rate 14 01/03/2019 10:51 AM CDT Oxygen Saturation - - Inhaled Oxygen Concentration - - Weight 59.1 kg (130 lb 3.2 oz) 01/03/2019 10:51 AM CDT Height 160 cm (5' 3") 01/03/2019 10:51 AM CDT Body Mass Index 23.06 01/03/2019 10:51 AM CDT documented in this encounter Progress Notes Estela Crenshaw MD - 01/03/2019 11:00 AM CDT Initial Visit Note [facility] Chief Complaint Patient presents with Initial Consultation Inflammatory Bowel Disease Crohn's Disease HPI: Dank Helton is a 48 y.o. male seen as a self referral . He is being seen today for ileocolonic Crohn's disease with suspected stricturing dz behavior. 1985: Diagnosed with CD, states he became ill and required ileal resection 2013: Had recurrence of CD - treated with steroids (in [place]), states he was told he needed tostart Humira at this time but could not find a specialist to prescribe it. Nov 2018: Admitted to [facility] (as a transfer from [facility]) with weakness, abd pain, nausea andbloating. No diarrhea, no blood, no melena, no mucus and vomiting. Reported symptoms similar to flare from 5 years ago though less severe. At [facility], labs revealed WB 14.7, Hgb 14.1, Plt 260, Cr 1.07, AST 17, ALT 23, total bilirubin 1.5, alkaline phosphatase 88, albumin 4.1, lipase 118. CT abdomen/pelvis revealed "small bowel obstruction pattern involving the ileum" with "active infectious/inflammatory changes of the distal ileum with probable post inflammatory stricture 10 cm from the ileocecal valve as the etiology for the bowel dilation"..."consistent with active Crohn's disease." Had a colonoscopy showing IC valve stenosis and evidence of active ileitis with minimal chronic changes. Dec 2018: Doing well, still on 30 mg prednisone states he forgot to taper beyond this point. No n/v,abd pain. Has a good appetite and is not restricting his diet. Denies diarrhea. Endoscopy: Colonoscopy 11/2018 - Of note, patient received one dose of steroids prior to endoscopy. The perianal and digital rectalexaminations were normal. - A benign-appearing, intrinsic severe stenosis measuring 6 mm (inner diameter) was found at the ileocecal valve and was non-traversed. This is likely from patient's Crohn's disease. - The ileum was only superficially evaluated given stenosis at the IC valve. Localized inflammation,mild in severity and characterized by erythema, friability, granularity and aphthous ulcerations wasfound in the distal ileum. Biopsies were taken with a cold forceps for histology. - A localized area of granular mucosa was found in the cecum around the ileocecal valve. Biopsies were taken with a cold forceps for histology. - Normal mucosa was found in the rectum, in the sigmoid colon, in the descending colon, in the transverse colon and in the ascending colon. Biopsies were taken with a cold forceps for histology. - Internal hemorrhoids were found during retroflexion. The hemorrhoids were small and Grade I (internal hemorrhoids that do not prolapse). A. TERMINAL ILEUM, BIOPSY: - NONSPECIFIC ACTIVE ILEITIS (SEE COMMENT) B. COLON, CECUM, BIOPSY: - NONSPECIFIC ACTIVE COLITIS (SEE COMMENT) C. COLON, RIGHT/ASCENDING, BIOPSY: - NO SIGNIFICANT HISTOPATHOLOGIC CHANGE D. COLON, TRANSVERSE, BIOPSY: - NO SIGNIFICANT HISTOPATHOLOGIC CHANGE E. COLON, DESCENDING/SIGMOID, BIOPSY: - NO SIGNIFICANT HISTOPATHOLOGIC CHANGE F. RECTUM, BIOPSY: - NO SIGNIFICANT HISTOPATHOLOGIC CHANGE Micro: The ileal biopsy shows active inflammation. Mild crypt distortion and villous blunting are seen, however other features of chronicity such as granulomas and metaplastic changes are not seen Radiology: Reviewed Medications No current outpatient medications on file prior to visit. No current facility-administered medications on file prior to visit. Past Medical History: Diagnosis Date Reflux gastritis Social History reports that he has never smoked. He has never used smokeless tobacco. Family History family history is not on file. REVIEW OF SYSTEMS: General: no fever, no chills, no fatigue.Ophthalmic: no blurry vision, no erythema.ENT: no oral lesions, no vocal changes. Respiratory: no cough, no wheezing, no shortness of breath. Cardiovascular: no chest pain, no dyspnea on exertion. Gastrointestinal: see HPI. Genitourinary: no dysuria, trouble voiding, or hematuria. Musculoskeletal: no joint pains, no joint swelling. Neurological: no numbness/tingling. Dermatological: no skin rashes. Psychological: no anxiety, no depression PHYSICAL EXAM: Vitals: 01/03/19 1051 BP: 90/60 Pulse: 62 Resp: 14 Temp: 98.2 F (36.8 C) TempSrc: Oral Weight: 130 lb 3.2 oz (59.1 kg) Height: 5' 3" (1.6 m) General: Alert, oriented, no acute distress HEENT: oropharnyx clear - no lesions Neck: Supple, no lymphadenopathy, no masses Chest: Clear to auscultation bilaterally CV: Normal S1, S2 Abdomen: Normoactive bowel sounds, soft, no organomegaly, nontender Rectal: deferred Ext: No edema Neuro: no focal deficits Skin: no rashes Data Review: Laboratory: Lab Results Component Value Date WBC 7.9 12/09/2018 HGB 12.9 (L) 12/09/2018 HCT 41.1 12/09/2018 MCV 73.8 (L) 12/09/2018 PLT 254 12/09/2018 No results found for: SEDRATE Lab Results Component Value Date CRP 1.08 (H) 12/06/2018 Lab Results Component Value Date CREATININE 0.82 12/09/2018 Lab Results Component Value Date ALT 12 12/09/2018 AST 14 12/09/2018 ALKPHOS 67 12/09/2018 BILITOT 2.4 (H) 12/09/2018 The patient's intake sheet was reviewed today, with information pertaining to past medical history, family medical history, social history, allergies, and medications reviewed. The intake sheets are byprotocol scanned into the system after the clinic visit Disease Activity: General Well Bein = Slightly below par Abdominal Pain: 0 = None Number of liquid stools per day: 1 Abdominal Mass: 0 = None Complications: 0 = None Total Score is 2 ASSESSMENT and PLAN: Dank Helton is a 48 y.o. male with the following ongoing issues: 1. Ileocolonic CD with stricturing dz behavior 2. History of ileal resection 3. Indolent dz course with 2 flares in the the last 30+ years requiring hospitalization and steroid use 4. Naive to all maintenance therapies My recommendations are as follows: 1. Suspect he will need to initiate maintenance therapy with biologics to prevent progression of IC valve stricture and to treat mild inflammation noted on ileal biopsies however will need to get MRE to assess for small bowel disease activity - if completely normal could consider observation 2. Labs today - CBC, CMP, ESR, CRP, needs iron studies as noted to be microcytic in the hospital, also vitamin D and b12 levels 3. Taper prednisone by 5 mg weekly 4. Discussed options for longer term therapy and likely will proceed with ustekinumab if significantsmall bowel dz present due to favorable safety profile and efficacy 5. Health maintenance - deferred Follow-up in 8-10 weeks Estela Crenshaw MD documented in this encounter Plan of Treatment Date Type Specialty Care Team Description 03/07/2019 Office Visit Gastroenterology Estela Crenshaw MD [address] [address] [phone] Name Type Priority Associated Diagnoses Order S chedule CBC W/O DIFF W PLT Lab Routine Crohn's disease of Ord ered: 01/03/2019 both small and large intestine with fistula (HCCode) COMPREHENSIVE METABOLIC Lab Routine Crohn's disease o f Ordered: 01/03/2019 PANEL both small and large intestine with fistula (HCCode) SEDIMENTATION RATE Lab Routine Crohn's disease of Ord ered: 01/03/2019 MODIFIED JACKY both small and large intestine with fistula (HCCode) C-REACTIVE PROTEIN Lab Routine Crohn's disease of Ord ered: 01/03/2019 both small and large intestine with fistula (HCCode) QUANTIFERON TB GOLD PLUS Lab Routine Crohn's disease of Ordered: 01/03/2019 4 TUBES both small and large intestine with fistula (HCCode) HEPATITIS B SURFACE Lab Routine Crohn's disease of Or dered: 01/03/2019 ANTIGEN both small and large intestine with fistula (HCCode) HEPATITIS B SURFACE AB Lab Routine Crohn's disease of Ordered: 01/03/2019 QUAL both small and large intestine with fistula (HCCode) HEPATITIS A AB, TOTAL Lab Routine Crohn's disease of Ordered: 01/03/2019 W/REFL IGM both small and large intestine with fistula (HCCode) HEPATITIS C ANTIBODY Lab Routine Crohn's disease of O rdered: 01/03/2019 both small and large intestine with fistula (HCCode) VITAMIN D 25 HYDROXY Lab Routine Crohn's disease of O rdered: 01/03/2019 both small and large intestine with fistula (HCCode) VITAMIN B12 Lab Routine Crohn's disease of Ordered: 01/03/2019 both small and large intestine with fistula (HCCode) FERRITIN Lab Routine Crohn's disease of Ordered: 01/03/2019 both small and large intestine with fistula (HCCode) IRON+TIBC+%SAT Lab Routine Crohn's disease of Ordered : 01/03/2019 both small and large intestine with fistula (HCCode) TRANSFERRIN Lab Routine Crohn's disease of Ordered: 01/03/2019 both small and large intestine with fistula (HCCode) MRI ENTEROGRAPHY (SMALL Imaging Routine Crohn's disease o f 1 Occurrences starting BOWEL EVALUATION) both small and large until intestine with 08/04/2019 fistula (HCCode) Health Maintenance Due Date Last Done Comments TETANUS SHOT (ADULT) 1985 HIV SCREENING 1988 FLU VACCINE > 6 MONTHS 10/18/2018 documented as of this encounter Results Not on filedocumented in this encounter Visit Diagnoses Diagnosis Crohn's disease of both small and large intestine with fistula (HCCode) - Primary Regional enteritis of small intestine wi th large intestine documented in this encounter Insurance Payer Benefit Plan / Subscriber ID Effective Dates Phone Addre ss Type Group [employer] OPEN ACCESS xxxxxxxxxxx 2018-Presen [address] PPO PLUS - [place] [phone] documented as of this encounter
[2019-07-19] MEDS ORDERED: ONDANSETRON 4 MG/2 ML VIAL ONE (20:36)
[2019-07-19] MEDS ORDERED: MORPHINE 4 MG/ML SYR ONE (20:36)
[2019-07-19] MEDS ORDERED: NA CHLORIDE 0.9% 1,000 ML ONE (20:37)
[2019-07-19] MEDS ORDERED: MORPHINE 2 MG/ML SYR ONE (20:38)
[2019-07-19 20:54] LABS: Albumin 3.4 g/dL (3.4-5.0); Bilirubin Direct 0.3 mg/dL (0-0.2); Bilirubin Total 1.9 mg/dL (0.2-1.0); Potassium 3.6 mmol/L (3.5-5.1); Protein, Total 7.5 g/dL (6.4-8.2)
[2019-07-19 20:56] LABS: Absolute Lymphocytes (CBC) 0.9 K/uL (0.7-4.9); Basophils % 0.2 % (0-1.3)
[2019-07-19 21:00] LABS: Hematocrit 43.5 % (39.6-49.0); Lymphocytes % 8.6 % (15.3-44.8); MPV 7.9 fL (7.6-11.3); RBC Red Blood Cell Count 6.02 M/uL (4.33-5.43)
--- NOTE | 2019-07-19 21:30 | RAD REPORT ---
EXAM DESCRIPTION: CTAbdomen Pelvis W Contrast - 07/19/2019 9:19 pm CLINICAL HISTORY: Abdominal pain. nausea;Abd pain COMPARISON: Abdomen Pelvis W Contrast dated 12/05/2018 TECHNIQUE: Biphasic CT imaging of the abdomen and pelvis was performed with 100 ml non-ionic IV cont rast. All CT scans are performed using dose optimization technique as appropriate and may include automated exposure control or mA/KV adjustment according to patient size. FINDINGS: The lung bases are clear. The liver, spleen, pancreas, adrenal glands are within normal limits. Punctate stones are present in the right kidney without hydronephrosis. No left-sided renal calculi seen. Moderate inflammation involves several small bowel loops in the right abdomen. Several adjacent small bowel loops appear fluid filled and mildly distended. Short segment of small bowel in the left abdom en also shows moderate inflammation. The appendix is not identified as a discrete structure, however , no secondary findings of appendicitis are identified. Small fat containing left inguinal hernia. N o evidence of significant lymphadenopathy. No suspicious bony findings. IMPRESSION: Several inflamed small bowel loops are present suggesting inflammatory bowel disease. Fluid-filled distended small bowel loops in the left abdomen may be secondary to partial mechanical o bstruction related to small bowel stricture from prior inflammatory events. Punctate right nephrolithiasis without hydronephrosis.
--- NOTE | 2019-07-19 22:14 | ER ---
Nurse's Notes [facility] Name: Dank Helton Age: 48 yrs Sex: Male : 1970 Arrival Date: 07/19/2019 Time: 19:47 Bed 7 Private MD: Diagnosis: Abdominal. Nausea. Crohn's disease. Partial small bowel obstruction Presentation: 07/18 19:53 Chief complaint: Patient states: Dizziness and nausea since this morning. Reports ca1 abdominal pain on L mid abdominal area. Pt reports hx of Crohn's. Coronavirus screen: Proceed with normal triage. Patient denies a cough. Patient denies shortness of breath or difficulty breathing. Patient denies measured and/or subjective temperature greater than 100.4F prior to today's visit. Patient denies travel on a cruise ship or to a country the [facility] currently lists as an affected area. Patient denies contact with known and/or suspected case of COVID-19. Ebola Screen: Patient negative for fever greater than or equal to 101.5 degrees Fahrenheit, and additional compatible Ebola Virus Disease symptoms Patient denies exposure to infectious person. Patient denies travel to an Ebola-affected area in the 21 days before illness onset. No symptoms or risks identified at this time. Initial Sepsis Screen: Does the patient meet any 2 criteria? No. Patient's initial sepsis screen is negative. Does the patient have a suspected source of infection? No. Patient's initial sepsis screen is negative. Risk Assessment: Do you want to hurt yourself or someone else? Patient reports no desire to harm self or others. Onset of symptoms was July 19, 2019. 19:53 Method Of Arrival: Ambulatory ca1 19:53 Acuity: NITA 3 ca1 Triage Assessment: 20:10 General: Appears in no apparent distress. comfortable, Behavior is calm, cooperative, rr5 appropriate for age. 20:10 GI: Reports lower abdominal pain, nausea. rr5 Historical: - Allergies: 19:56 No Known Allergies; ca1 - Home Meds: 19:56 None [Active]; ca1 - PMHx: 19:56 Crohn's; ca1 - PSHx: 19:56 Abdominal resection; ca1 - Immunization history:: Adult Immunizations not up to date. - Social history:: Smoking status: Patient/guardian denies using tobacco, Stopped _ months ago 6. Screenin:40 Abuse screen: Denies threats or abuse. Denies injuries from another. Nutritional rr5 screening: No deficits noted. Tuberculosis screening: No symptoms or risk factors identified. Fall Risk IV access (20 points). Total Estrada Fall Scale indicates No Risk (0-24 pts). Assessment: 20:10 General: Appears in no apparent distress. comfortable, Behavior is calm. rr5 20:10 Pain: Complains of pain in right lower quadrant and left lower quadrant Pain does not rr5 radiate. Pain Quality of pain is described as aching, Pain began gradually, Is intermittent. Neuro: Level of Consciousness is awake, alert, obeys commands, Oriented to person, place, time, situation, Appropriate for age Reports dizziness. Cardiovascular: Capillary refill < 3 seconds Patient's skin is warm and dry. Respiratory: Airway is patent Respiratory effort is even, unlabored, Respiratory pattern is regular, symmetrical. GI: Abdomen is flat, non-distended, Reports lower abdominal pain, nausea. : No signs and/or symptoms were reported regarding the genitourinary system. EENT: No signs and/or symptoms were reported regarding the EENT system. Derm: Skin is intact, is healthy with good turgor, Skin temperature is warm. 21:30 Reassessment: Patient appears in no apparent distress at this time. Patient is alert, rr5 oriented x 3, equal unlabored respirations, skin warm/dry/pink. awaiting for results. Patient states feeling better. Patient states symptoms have improved. 22:40 Reassessment: Patient appears in no apparent distress at this time. Patient is alert, rr5 oriented x 3, equal unlabored respirations, skin warm/dry/pink. for discharge, reassess by ED provider advised for transfer patient refused, agreed to signed AMA. He stated I feel better now. 23:00 Reassessment: Patient appears in no apparent distress at this time. Patient is alert, rr5 oriented x 3, equal unlabored respirations, skin warm/dry/pink. AMA signed. discharge instruction given and explained without complaints made. Vital Signs: 19:53 BP 121 / 89; Pulse 99; Resp 19 A; Temp 98.5(TE); Pulse Ox 100% on R/A; Weight 61.23 kg ca1 (R); Height 5 ft. 3 in. (160.02 cm) (R); Pain 3/10; 21:30 BP 126 / 79; Pulse 89; Resp 17; Pulse Ox 100% ; rr5 22:40 BP 117 / 65; Pulse 80; Resp 16; Pulse Ox 99% on R/A; rr5 19:53 Body Mass Index 23.91 (61.23 kg, 160.02 cm) ca1 ED Course: 19:47 Patient arrived in ED. ds1 19:55 Triage completed. ca1 19:56 Arm band placed on right wrist. ca1 19:57 Homar Byrd MD is Attending Physician. pkl 20:10 Patient has correct armband on for positive identification. Bed in low position. Call rr5 light in reach. Pulse ox on. NIBP on. 20:31 Yunier Pavon RN is Primary Nurse. rr5 20:41 Inserted saline lock: 20 gauge in right antecubital area, using aseptic technique. dh4 forearm, using aseptic technique. 21:19 CT Abd/Pelvis - IV Contrast Only In Process Unspecified. EDMS 23:00 No provider procedures requiring assistance completed. IV discontinued, intact, rr5 bleeding controlled, No redness/swelling at site. Pressure dressing applied. Administered Medications: 20:45 Drug: NS 0.9% 1000 ml Route: IV; Rate: 1000 ml; Site: right forearm; rr5 22:00 Follow up: Response: No adverse reaction; IV Status: Completed infusion; IV Intake: rr5 1000ml 20:46 Drug: Zofran (Ondansetron) 4 mg Route: IVP; Site: right forearm; rr5 21:46 Follow up: Response: No adverse reaction rr5 20:47 Drug: morphine 2 mg {Note: rass 0.} Route: IVP; Site: right forearm; rr5 21:47 Follow up: Response: No adverse reaction; RASS: Alert and Calm (0) rr5 22:35 Drug: Cipro 500 mg Route: PO; rr5 23:00 Follow up: Response: No adverse reaction rr5 22:35 Drug: SOLU-Medrol 125 mg Route: IM; Site: right gluteus; rr5 23:00 Follow up: Response: No adverse reaction rr5 22:41 Not Given (Other Intervention Used): SOLU-Medrol 125 mg IVP once rr5 Intake: 22:00 IV: 1000ml; Total: 1000ml. rr5 Outcome: 22:14 Discharge ordered by MD. dela cruz 23:00 AMA AMA form signed rr5 23:00 Condition: stable 23:00 Discharge instructions given to patient, Instructed on discharge instructions, follow up and referral plans. medication usage, Demonstrated understanding of instructions, follow-up care, medications, Prescriptions given X 3. 23:04 Patient left the ED. rr5 Signatures: Dispatcher [employer] EDMD Homar Byrd MD MD pkl Christin Alejandra ds1 Yunier Pavon RN RN rr5 Rafia Jimenez RN RN ca1 [facility]
--- NOTE | 2019-07-19 22:15 | EDPHYS ---
Physician Documentation [facility] Name: Dank Helton Age: 48 yrs Sex: Male : 1970 Arrival Date: 07/19/2019 Time: 19:47 Bed 7 Private MD: ED Physician Homar Byrd HPI: 07/18 20:17 This 48 yrs old Male presents to ER via Ambulatory with complaints of Nausea. pkl 20:17 The patient presents with abdominal pain in the left upper quadrant. Onset: The pkl symptoms/episode began/occurred this morning. The symptoms do not radiate. H/O Crohn's. Historical: - Allergies: 19:56 No Known Allergies; ca1 - Home Meds: 19:56 None [Active]; ca1 - PMHx: 19:56 Crohn's; ca1 - PSHx: 19:56 Abdominal resection; ca1 - Immunization history:: Adult Immunizations not up to date. - Social history:: Smoking status: Patient/guardian denies using tobacco, Stopped _ months ago 6. ROS: 20:17 Eyes: Negative for injury, pain, redness, and discharge, ENT: Negative for injury, pkl pain, and discharge, Neck: Negative for injury, pain, and swelling, Cardiovascular: Negative for chest pain, palpitations, and edema, Respiratory: Negative for shortness of breath, cough, wheezing, and pleuritic chest pain. 20:17 Abdomen/GI: Positive for abdominal pain, nausea, of the left upper quadrant. 20:17 Back: Negative for acute changes. 20:17 : Negative for urinary symptoms. 20:17 MS/extremity: Negative for acute changes. 20:17 Skin: Negative for rash. 20:17 Neuro: Negative for altered mental status. Exam: 20:17 Head/Face: Normocephalic, atraumatic. Eyes: Pupils equal round and reactive to light, pkl extra-ocular motions intact. Lids and lashes normal. Conjunctiva and sclera are non-icteric and not injected. Cornea within normal limits. Periorbital areas with no swelling, redness, or edema. ENT: Nares patent. No nasal discharge, no septal abnormalities noted. Tympanic membranes are normal and external auditory canals are clear. Oropharynx with no redness, swelling, or masses, exudates, or evidence of obstruction, uvula midline. Mucous membranes moist. Neck: Trachea midline, no thyromegaly or masses palpated, and no cervical lymphadenopathy. Supple, full range of motion without nuchal rigidity, or vertebral point tenderness. No Meningismus. Chest/axilla: Normal chest wall appearance and motion. Nontender with no deformity. No lesions are appreciated. Cardiovascular: Regular rate and rhythm with a normal S1 and S2. No gallops, murmurs, or rubs. Normal PMI, no JVD. No pulse deficits. Respiratory: Lungs have equal breath sounds bilaterally, clear to auscultation and percussion. No rales, rhonchi or wheezes noted. No increased work of breathing, no retractions or nasal flaring. 20:17 Abdomen/GI: Bowel sounds: normal, Palpation: soft, mild abdominal tenderness, in the left upper quadrant. 20:17 Back: Exam negative for acute changes. 20:17 : Exam negative for acute changes. 20:17 Musculoskeletal/extremity: Exam is negative for acute changes. 20:17 Skin: Exam negative for rash. 20:17 Neuro: Orientation: is normal, Mentation: is normal, Cranial nerves: grossly normal, Motor: is normal. Vital Signs: 19:53 BP 121 / 89; Pulse 99; Resp 19 A; Temp 98.5(TE); Pulse Ox 100% on R/A; Weight 61.23 kg ca1 (R); Height 5 ft. 3 in. (160.02 cm) (R); Pain 3/10; 21:30 BP 126 / 79; Pulse 89; Resp 17; Pulse Ox 100% ; rr5 22:40 BP 117 / 65; Pulse 80; Resp 16; Pulse Ox 99% on R/A; rr5 19:53 Body Mass Index 23.91 (61.23 kg, 160.02 cm) ca1 MDM: 19:57 Patient medically screened. pkl 22:03 Data reviewed: vital signs, nurses notes, lab test result(s), radiologic studies, CT pkl scan. ED course: Patient feeling better. Discussed lab. and CT Scan results with patient. Patient was transferred to [facility] in 2018 for same complaints. Patient said he is feeling better now. Does not want to be transferred to [facility] at this time. 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 Patient signed AMA. 07/18 20:16 Order name: Basic Metabolic Panel; Complete Time: 21:10 pkl 07/18 20:16 Order name: CBC with Diff; Complete Time: 21:10 pkl 07/18 20:16 Order name: Creatinine for Radiology; Complete Time: 21:10 pkl 07/18 20:16 Order name: Hepatic Function; Complete Time: 21:10 pkl 07/18 20:16 Order name: Lipase; Complete Time: 21:10 pkl 07/18 20:16 Order name: CT Abd/Pelvis - IV Contrast Only; Complete Time: 21:32 pkl 07/18 20:16 Order name: IV Saline Lock; Complete Time: 20:56 pkl 07/18 20:16 Order name: Labs collected and sent; Complete Time: 20:56 pkl Administered Medications: 20:45 Drug: NS 0.9% 1000 ml Route: IV; Rate: 1000 ml; Site: right forearm; rr5 22:00 Follow up: Response: No adverse reaction; IV Status: Completed infusion; IV Intake: rr5 1000ml 20:46 Drug: Zofran (Ondansetron) 4 mg Route: IVP; Site: right forearm; rr5 21:46 Follow up: Response: No adverse reaction rr5 20:47 Drug: morphine 2 mg {Note: rass 0.} Route: IVP; Site: right forearm; rr5 21:47 Follow up: Response: No adverse reaction; RASS: Alert and Calm (0) rr5 22:35 Drug: Cipro 500 mg Route: PO; rr5 23:00 Follow up: Response: No adverse reaction rr5 22:35 Drug: SOLU-Medrol 125 mg Route: IM; Site: right gluteus; rr5 23:00 Follow up: Response: No adverse reaction rr5 22:41 Not Given (Other Intervention Used): SOLU-Medrol 125 mg IVP once rr5 Disposition: 07/19/19 22:24 Patient has left against medical advice. Impression: Abdominal. Nausea. Crohn's disease. Partial small bowel obstruction. - Patients states they are going to Home. - Condition is Stable. Follow up: Private Physician; When: 2 - 3 days; Reason: Re-evaluation by your physician. - Problem is new. - Symptoms have improved. Signatures: Dispatcher [employer] EDHomar Bella MD MD pkl Roque, Yunier, RN RN rr5 Rafia Jimenez RN RN ca1 Corrections: (The following items were deleted from the chart) 22:21 22:14 07/19/2019 22:14 Discharged to Home. Impression: Abdominal pain. Nausea. Crohn's pkl disease. Partial small bowel obstruction. Condition is Stable. Forms are Medication Reconciliation Form, Thank You Letter, Antibiotic Education, Prescription Opioid Use. Follow up: Private Physician; When: 2 - 3 days; Reason: Re-evaluation by your physician. Problem is new. Symptoms have improved. pkl 23:04 22:24 07/19/2019 22:24 Patients has left against medical advice. Impression: Abdominal. rr5 Nausea. Crohn's disease. Partial small bowel obstruction. Patient states they are going to Home. Condition is Stable. Prescriptions for Prednisone 20 mg Oral Tablet - take 1 tablet by ORAL route once daily for 5 days; 5 tablet, Zofran 4 mg Oral Tablet - take 1 tablet by ORAL route every 8 hours As needed; 12 tablet, Cipro 500 mg Oral Tablet - take 1 tablet by ORAL route every 12 hours for 7 days; 14 tabletFollow up: Private Physician; When: 2 - 3 days; Reason: Re-evaluation by your physician. Problem is new. Symptoms have improved. pkl
[2019-07-19] MEDS ORDERED: CIPROFLOXACIN HCL 500 MG TAB ONE (22:41)
[2019-07-19] MEDS ORDERED: METHYLPREDNISOLONE 125 MG INJ ONE (22:41)
[2019-07-20 00:21] VITALS: BP 121/89; TEMP 98.5; O2SAT 100
== END 2019-07-19 23:04 | disposition left against medical advice (07) ==
LOC: ER 19:46
DX: R11.0 Nausea (principal); K50.90 Crohn's disease, unspecified, without complications; K56.609 Unspecified intestinal obstruction, unspecified as to partial versus complete obstruction
CPT/HCPCS: 96361; 85025; 80048; 36415; 80076; 83690; 74177; 96375; 96372; 96374; 99284; Q9967; J2270; J7030; J2930; J2405

== ENCOUNTER 2020-07-27 08:59 | Emergency (ER) | payer OTHER ==
--- OUTSIDE RECORDS SUMMARY | 2020-07-27 09:03 | XMS REPORT | Continuity of Care Document ---
:1970 Author Organization [facility] t Address [address] [place] [address] Care Team Providers Name Role Phone Den FIGUEROA Attending Clinician JAMISON FERNANDEZ Attending Clinician Unavailable Fatemeh BALDERRAMA Admitting Clinician Unavailable Problems Condition Condition Condition Status Onset Resolution Last Treating Co mments Source Name Details Category Date Date Treatment Clinician Date Crohn's Crohn's Disease Active [facility] colitis colitis 12-05 Lu - 00:00: Medical 00 Center Allergies, Adverse Reactions, Alerts This patient has no known allergies or adverse reactions. Social History Social Habit Start Date Stop Date Quantity Comments Source Sex Assigned At [facility] Tobacco use and 2018-12-08 2018-12-08 Never used [facility] - exposure 00:00:00 00:00:00 [facility] Center Alcohol intake 2018-12-08 2018-12-08 Current drinker [facility] Gustavo Weinstein - 00:00:00 00:00:00 of alcohol [facility] (finding) Alcohol Comment 2018-12-08 2018-12-08 Socially [facility] - 00:00:00 00:00:00 Medical Center Smoking Status Start Date Stop Date Source Current some day smoker 2018-12-08 00:00:00 [facility] Medications Ordered Filled Start Stop Current Ordering Indication Dosage Frequency Signature Comments Components Source Medication Medication Date Date Medication? Clinician (SIG) Name Name predniSONE 2018- Yes Take [address] (DELTASONE) 9-22 ([facility] - 10 MG 00:00: tablets) Medical tablet 00 for 7 Center days. Decrease by 5 mg (half tablet) every 7 days until you reach 20 mg.. Procedures This patient has no known procedures. Plan of Care Planned Activity Planned Date Details Comments Source Future Scheduled 2019-11-19 INFLUENZA VACCINE (#1) [facility] - Test 00:00:00 [code = INFLUENZA Medical Ce nter VACCINE (#1)] Future Scheduled [address] [facility] - Test 00:00:00 (procedure) [code = Medical Center [id number]] Future Scheduled [address] [facility] - Test 00:00:00 0-64 YRS (1 of 1 - Medical C enter PPSV23) [code = PNEUMOCOCCAL VACCINE 0-64 YRS (1 of 1 - PPSV23)] Encounters Start End Encounter Admission Attending Care Care Encounter Source Date/Time Date/Time Type Type Clinicians Facility Department ID 2019-01-03 2019-01-03 Office ALBERT Crenshaw [id number] 10:19:22 10:59:22 Visit Estela AMBULATOR [id number] Y [id number] Results Test Description Test Time Test Comments Results Result [facility] e Comments TISSUE EXAM 2018-12-16 Surgical Pathology Report 12:17:00 Case: [id number] Authorizing Provider: Vaughn Calvo Collected: 12/08/2018 1050 Ordering Location: [address] Received: 12/10/2018 0814 SERVICE Pathologist: Mago Gentile MD Specimens: A) - Biopsy, Terminal Ileum, terminal ileum bx B) - Cecum, cecum bx C) - Large Intestine, Colon - Right/Ascending, ascending colon bx D) - Large Intestine, Colon - Transverse, transverse colon bx E) - Large Intestine, Colon - Left/Descending, descending / sigmoid colon bx F) - Rectum, rectum bx A. TERMINAL ILEUM, BIOPSY: - NONSPECIFIC ACTIVE ILEITIS (SEE COMMENT)B. COLON, CECUM, BIOPSY: - NONSPECIFIC ACTIVE COLITIS (SEE COMMENT)C. COLON, RIGHT/ASCENDING, BIOPSY: - NO SIGNIFICANT HISTOPATHOLOGIC CHANGED. COLON, TRANSVERSE, BIOPSY: - NO SIGNIFICANT HISTOPATHOLOGIC CHANGEE. COLON, DESCENDING/SIGMOID, BIOPSY: - NO SIGNIFICANT HISTOPATHOLOGIC CHANGEF. RECTUM, BIOPSY: - NO SIGNIFICANT HISTOPATHOLOGIC CHANGE Signing Pathologist Direct Phone Line: [phone] y signed by Mago Gentile MD on 12/16/2018 at 12:17 PMA-B. The ileal biopsy shows active inflammation. Mild crypt distortion and villous blunting are seen, however other features of chronicity such as granulomas and metaplastic changes are not seen. In specimen B, except for a rare bifid crypt, no other features of chronicity are seen.C-F. There is no evidence of active or chronic injury.The histologic changes are not classic for chronic inflammatory bowel disease, however the same cannot be excluded if this represents histologic resolution after treatment. Clinical and endoscopic correlation is recommended.[id number] ure: Colonoscopy, colon with ANESPre and postop diagnosis: Crohn's disease with complication, unspecified gastrointestinal tract location. A. Biopsy, terminal ileum, terminal ileum bx; B. Cecum, cecum biopsy; C. Large intestine, colon, right/ascending, ascending colon bx; D. Large intestine, colon - transverse, transverse colon bx; E. Large intestine, colon - left/descending, descending/sigmoid colon bx; F. Rectum, rectum bxA. Received in formalin labeled with the patient's name, accession number and "biopsy, terminal ileum, terminal ileum bx" is a 0.6 x 0.3 x 0.2 cm aggregate of multiple pieces of chan-brown, irregular, mucosal-covered tissues ranging from 0.3 x 0.3 x 0.2 cm to 0.1 x 0.1 x 0.1 cm. The specimen is submitted in toto following filtration in cassette A1. B. Received in formalin labeled with the patient's name, accession number and "cecum, cecum bx" are two pieces of chan-brown, irregular, mucosal-covered tissue measuring 0.3 x 0.3 x 0.1 cm and 0.2 x 0.1 x 0.1 cm. The specimen is submitted in toto following filtration in cassette B1. C. Received in formalin labeled with the patient's name, accession number and "large intestine, colon - right/ascending, ascending colon bx" is a 0.6 x 0.5 x 0.1 cm aggregate of five pieces of chan-brown, irregular, mucosal-covered tissue. The specimen is submitted in toto following filtration in cassette C1. D. Received in formalin labeled with the patient's name, accession number and "large intestine, colon - transverse, transverse colon bx" are three pieces of chan-brown, irregular, mucosal-covered tissue ranging from 0.4 x 0.2 x 0.2 cm to 0.3 x 0.1 x 0.1 cm and 0.7 x 0.3 x 0.2 cm in aggregate. The specimen is submitted in toto following filtration in cassette D1. E. Received in formalin labeled with the patient's name, accession number and "large intestine, colon - left/descending, descending/sigmoid colon bx" is a 0.9 x 0.3 x 0.1 cm aggregate of multiple pieces of chan-brown, irregular, mucosal-covered tissue The specimen is submitted in toto following filtration in cassette E1. F. Received in formalin labeled with the patient's name, accession number and "rectum, rectum bx" is a 0.8 x 0.3 x 0.1 cm aggregate of four pieces of chan-brown, irregular, mucosal-covered tissue. The specimen is submitted in toto following filtration in cassette F1. SS/plPerformed.The interpretation of this case included the use of immunohistochemistry or special stains.Control Slides Examined: In-house known positive controls were evaluated along with the test tissue. These control slides run alongside of the patients sample show appropriate staining. Internal positive and negative controls when available are evaluated Immunohistochemistry technical testing was performed at [facility], Pathology Laboratory where it was developed and its performance characteristics were determined. It has not been cleared or approved by the U.S. Food and Drug Administration. The FDA has determined that such clearance or approval is not necessary. The test is used for clinical purposes. It should not be regarded as investigational or for research. This laboratory is certified under the Clinical Laboratory Improvement Amendments of 1988 (CLIA-88) as qualified to perform high complexity clinical laboratory testing. OVA AND PARASITE EXAMINATION 2018-12-11 07:34:00 Test Item Value Reference Range Interpretation Comme nts DIRECT SMEAR - O\\T\\P (BEAKER) No ova or parasites seen No ova or parasites seen (test code = 196) CONCENTRATE SMEAR - O\\T\\P No ova or parasites seen No ova or parasi merrick seen (BEAKER) (test code = 247) TRICHROME SMEAR - O\\T\\P No ova or parasites seen No ova or parasite s seen (BEAKER) (test code = 248) STOOL CULTURE + SHIGA [id number] 12:10:00 Test Item Value Reference Range Interpretation Comments CULTURE (BEAKER) No Salmonella, Shigella (test code = 1095) or Campylobacter isolated Unable to test for Shiga Toxin 1 due to insufficient growth of specimen.Unable to test for Shiga Toxin 2 due to insufficient growth of specimen.CBC W/PLT COUNT & AUTO [id number] 08:52:00 Test Item Value Reference Range Interpretation Comments WHITE BLOOD CELL COUNT (BEAKER) 7.9 K/ L 3.5-10.5 (test code = 775) RED BLOOD CELL COUNT (BEAKER) 5.57 M/ L 4.63-6.08 (test code = 761) HEMOGLOBIN (BEAKER) (test code = 12.9 GM/DL 13.7-17.5 L 410) HEMATOCRIT (BEAKER) (test code = 41.1 % 40.1-51.0 411) MEAN CORPUSCULAR VOLUME (BEAKER) 73.8 fL 79.0-92.2 L (test code = 753) MEAN CORPUSCULAR HEMOGLOBIN 23.2 pg 25.7-32.2 L (BEAKER) (test code = 751) MEAN CORPUSCULAR HEMOGLOBIN CONC 31.4 GM/DL 32.3-36.5 L (BEAKER) (test code = 752) RED CELL DISTRIBUTION WIDTH 14.6 % 11.6-14.4 H (BEAKER) (test code = 412) PLATELET COUNT (BEAKER) (test 254 K/CU MM 150-450 code = 756) MEAN PLATELET VOLUME (BEAKER) 10.2 fL 9.4-12.4 (test code = 754) NUCLEATED RED BLOOD CELLS 0 /100 WBC 0-0 (BEAKER) (test code = 413) NEUTROPHILS RELATIVE PERCENT 83 % (BEAKER) (test code = 429) LYMPHOCYTES RELATIVE PERCENT 15 % (BEAKER) (test code = 430) MONOCYTES RELATIVE PERCENT 2 % (BEAKER) (test code = 431) EOSINOPHILS RELATIVE PERCENT 0 % (BEAKER) (test code = 432) BASOPHILS RELATIVE PERCENT 0 % (BEAKER) (test code = 437) NEUTROPHILS ABSOLUTE COUNT 6.54 K/ L 1.78-5.38 H (BEAKER) (test code = 670) LYMPHOCYTES ABSOLUTE COUNT 1.15 K/ L 1.32-3.57 L (BEAKER) (test code = 414) MONOCYTES ABSOLUTE COUNT (BEAKER) 0.12 K/ L 0.30-0.82 L (test code = 415) EOSINOPHILS ABSOLUTE COUNT 0.00 K/ L 0.04-0.54 L (BEAKER) (test code = 416) BASOPHILS ABSOLUTE COUNT (BEAKER) 0.01 K/ L 0.01-0.08 (test code = 417) IMMATURE GRANULOCYTES-RELATIVE 1 % 0-1 PERCENT (BEAKER) (test code = 2801) [id number] 08:41:00 Test Item Value Reference Range Interpretation Comments PHOSPHORUS (BEAKER) (test code = 3.7 mg/dL 2.3-4.7 604) [id number] 08:41:00 Test Item Value Reference Range Interpretation Comments MAGNESIUM (BEAKER) (test code = 2.0 mg/dL 1.6-2.6 627) COMPREHENSIVE METABOLIC [id number] 08:41:00 Test Item Value Reference Range Interpretation Comments TOTAL PROTEIN 6.6 gm/dL 6.0-8.3 (BEAKER) (test code = 770) ALBUMIN (BEAKER) 3.8 g/dL 3.5-5.0 (test code = 1145) ALKALINE PHOSPHATASE 67 U/L 40-150 (BEAKER) (test code = 346) BILIRUBIN TOTAL 2.4 mg/dL 0.2-1.2 H (BEAKER) (test code = 377) SODIUM (BEAKER) (test 136 meq/L 136-145 code = 381) POTASSIUM (BEAKER) 4.2 meq/L 3.5-5.1 (test code = 379) CHLORIDE (BEAKER) 106 meq/L 98-107 (test code = 382) CO2 (BEAKER) (test 22 meq/L 22-29 code = 355) BLOOD UREA NITROGEN 11 mg/dL 7-21 (BEAKER) (test code = 354) CREATININE (BEAKER) 0.82 mg/dL 0.57-1.25 (test code = 358) GLUCOSE RANDOM 109 mg/dL 70-105 H (BEAKER) (test code = 652) CALCIUM (BEAKER) 8.7 mg/dL 8.4-10.2 (test code = 697) AST (SGOT) (BEAKER) 14 U/L 5-34 (test code = 353) ALT (SGPT) (BEAKER) 12 U/L 6-55 (test code = 347) EGFR (BEAKER) (test 100 ESTIMATE D GFR IS code = 1092) mL/min/1.73 sq NOT ACCURA TE m CREATININE CLEARANCE IN PREDICTING GLOMERULAR FILTRATION RATE . ESTIMATED GFR I S NOT APPLICABLE FOR DIALYSIS PATIEN TS. Specimen slightly ictericHEPATITIS B [id number] 08:37:00 Test Item Value Reference Range Interpretation Comments HEPATITIS B CORE TOTAL ANTIBODY Nonreactive Nonreactive (BEAKER) (test code = 497) HEPATITIS B SURFACE ANTIBODY < mIU/mL <8.0 (BEAKER) (test code = 647) HEPATITIS B SURFACE ANTIGEN (2) Nonreactive Nonreactive (BEAKER) (test code = 2585) HEPATITIS C [id number] 08:33:00 Test Item Value Reference Range Interpretation Comments HEPATITIS C ANTIBODY (BEAKER) Nonreactive Nonreactive (test code = 367) [id number] 07:51:00 Test Item Value Reference Range Interpretation Comments PHOSPHORUS (BEAKER) (test code = 3.0 mg/dL 2.3-4.7 604) [id number] 07:51:00 Test Item Value Reference Range Interpretation Comments MAGNESIUM (BEAKER) (test code = 2.0 mg/dL 1.6-2.6 627) COMPREHENSIVE METABOLIC [id number] 07:51:00 Test Item Value Reference Range Interpretation Comments TOTAL PROTEIN 6.5 gm/dL 6.0-8.3 (BEAKER) (test code = 770) ALBUMIN (BEAKER) 3.8 g/dL 3.5-5.0 (test code = 1145) ALKALINE PHOSPHATASE 64 U/L 40-150 (BEAKER) (test code = 346) BILIRUBIN TOTAL 2.6 mg/dL 0.2-1.2 H (BEAKER) (test code = 377) SODIUM (BEAKER) (test 140 meq/L 136-145 code = 381) POTASSIUM (BEAKER) 3.7 meq/L 3.5-5.1 (test code = 379) CHLORIDE (BEAKER) 107 meq/L 98-107 (test code = 382) CO2 (BEAKER) (test 25 meq/L 22-29 code = 355) BLOOD UREA NITROGEN 12 mg/dL 7-21 (BEAKER) (test code = 354) CREATININE (BEAKER) 0.93 mg/dL 0.57-1.25 (test code = 358) GLUCOSE RANDOM 82 mg/dL 70-105 (BEAKER) (test code = 652) CALCIUM (BEAKER) 8.7 mg/dL 8.4-10.2 (test code = 697) AST (SGOT) (BEAKER) 12 U/L 5-34 (test code = 353) ALT (SGPT) (BEAKER) 10 U/L 6-55 (test code = 347) EGFR (BEAKER) (test 87 mL/min/1.73 ESTIMA LUIS GFR IS code = 1092) sq m NOT ACCURATE CREATININE CLEARANCE IN PREDICTING GLOMERULAR FILTRATION RATE . ESTIMATED GFR I S NOT APPLICABLE FOR DIALYSIS PATIEN TS. Specimen slightly ictericCBC W/PLT COUNT & AUTO [id number] 06:27:00 Test Item Value Reference Range Interpretation Comments WHITE BLOOD CELL COUNT (BEAKER) 8.2 K/ L 3.5-10.5 (test code = 775) RED BLOOD CELL COUNT (BEAKER) 5.34 M/ L 4.63-6.08 (test code = 761) HEMOGLOBIN (BEAKER) (test code = 12.3 GM/DL 13.7-17.5 L 410) HEMATOCRIT (BEAKER) (test code = 39.6 % 40.1-51.0 L 411) MEAN CORPUSCULAR VOLUME (BEAKER) 74.2 fL 79.0-92.2 L (test code = 753) MEAN CORPUSCULAR HEMOGLOBIN 23.0 pg 25.7-32.2 L (BEAKER) (test code = 751) MEAN CORPUSCULAR HEMOGLOBIN CONC 31.1 GM/DL 32.3-36.5 L (BEAKER) (test code = 752) RED CELL DISTRIBUTION WIDTH 14.8 % 11.6-14.4 H (BEAKER) (test code = 412) PLATELET COUNT (BEAKER) (test 246 K/CU MM 150-450 code = 756) MEAN PLATELET VOLUME (BEAKER) 10.1 fL 9.4-12.4 (test code = 754) NUCLEATED RED BLOOD CELLS 0 /100 WBC 0-0 (BEAKER) (test code = 413) NEUTROPHILS RELATIVE PERCENT 48 % (BEAKER) (test code = 429) LYMPHOCYTES RELATIVE PERCENT 43 % (BEAKER) (test code = 430) MONOCYTES RELATIVE PERCENT 7 % (BEAKER) (test code = 431) EOSINOPHILS RELATIVE PERCENT 1 % (BEAKER) (test code = 432) BASOPHILS RELATIVE PERCENT 1 % (BEAKER) (test code = 437) NEUTROPHILS ABSOLUTE COUNT 3.93 K/ L 1.78-5.38 (BEAKER) (test code = 670) LYMPHOCYTES ABSOLUTE COUNT 3.51 K/ L 1.32-3.57 (BEAKER) (test code = 414) MONOCYTES ABSOLUTE COUNT (BEAKER) 0.56 K/ L 0.30-0.82 (test code = 415) EOSINOPHILS ABSOLUTE COUNT 0.11 K/ L 0.04-0.54 (BEAKER) (test code = 416) BASOPHILS ABSOLUTE COUNT (BEAKER) 0.04 K/ L 0.01-0.08 (test code = 417) IMMATURE GRANULOCYTES-RELATIVE 0 % 0-1 PERCENT (BEAKER) (test code = 0811) STOOL PATH [id number] 15:52:00 Test Item Value Reference Range Interpretation Comments PATHOGEN EXAM CHARGED (BEAKER) (test Done code = 2388) CMV PCR, [id number] 14:15:00 Test Item Value Reference Range Interpretation Comments CMV VIRAL LOAD - Negative or below the NEGATIVE (BEAKER) (test linear range of the code = 2558) assay (<375 copies/mL) Cytomegalovirus (CMV) infection can [...] and its performance characteristics determined by the [facility] Path ology Department, Section of Molecular Pathology. It has not been cleared or approved by the U.S. Food and Drug Administration (FDA), since FDA approval is not required for clinical use of the test. Validation was done as required by The Clinical Laboratory Improvement Amendments of 1988.BILIRUBIN, DIRECT 2018-12-07 11:14:00 Test Item Value Reference Range Interpretation Comments BILIRUBIN DIRECT (BEAKER) (test 0.8 mg/dL 0.1-0.5 H code = 706) [id number] 07:13:00 Test Item Value Reference Range Interpretation Comments MAGNESIUM (BEAKER) (test code = 2.1 mg/dL 1.6-2.6 627) COMPREHENSIVE METABOLIC [id number] 07:13:00 Test Item Value Reference Range Interpretation Comments TOTAL PROTEIN 6.4 gm/dL 6.0-8.3 (BEAKER) (test code = 770) ALBUMIN (BEAKER) 3.7 g/dL 3.5-5.0 (test code = 1145) ALKALINE PHOSPHATASE 63 U/L 40-150 (BEAKER) (test code = 346) BILIRUBIN TOTAL 2.5 mg/dL 0.2-1.2 H (BEAKER) (test code = 377) SODIUM (BEAKER) (test 137 meq/L 136-145 code = 381) POTASSIUM (BEAKER) 4.0 meq/L 3.5-5.1 (test code = 379) CHLORIDE (BEAKER) 106 meq/L 98-107 (test code = 382) CO2 (BEAKER) (test 24 meq/L 22-29 code = 355) BLOOD UREA NITROGEN 15 mg/dL 7-21 (BEAKER) (test code = 354) CREATININE (BEAKER) 0.95 mg/dL 0.57-1.25 (test code = 358) GLUCOSE RANDOM 94 mg/dL 70-105 (BEAKER) (test code = 652) CALCIUM (BEAKER) 8.5 mg/dL 8.4-10.2 (test code = 697) AST (SGOT) (BEAKER) 10 U/L 5-34 (test code = 353) ALT (SGPT) (BEAKER) 10 U/L 6-55 (test code = 347) EGFR (BEAKER) (test 85 mL/min/1.73 ESTIMA LUIS GFR IS code = 1092) sq m NOT ACCURATE CREATININE CLEARANCE IN PREDICTING GLOMERULAR FILTRATION RATE . ESTIMATED GFR I S NOT APPLICABLE FOR DIALYSIS PATIEN TS. Specimen slightly [id number] 07:13:00 Test Item Value Reference Range Interpretation Comments PHOSPHORUS (BEAKER) (test code = 3.3 mg/dL 2.3-4.7 604) CBC W/PLT COUNT & AUTO [id number] 06:05:00 Test Item Value Reference Range Interpretation Comments WHITE BLOOD CELL COUNT (BEAKER) 10.3 K/ L 3.5-10.5 (test code = 775) RED BLOOD CELL COUNT (BEAKER) 5.02 M/ L 4.63-6.08 (test code = 761) HEMOGLOBIN (BEAKER) (test code = 11.8 GM/DL 13.7-17.5 L 410) HEMATOCRIT (BEAKER) (test code = 36.7 % 40.1-51.0 L 411) MEAN CORPUSCULAR VOLUME (BEAKER) 73.1 fL 79.0-92.2 L (test code = 753) MEAN CORPUSCULAR HEMOGLOBIN 23.5 pg 25.7-32.2 L (BEAKER) (test code = 751) MEAN CORPUSCULAR HEMOGLOBIN CONC 32.2 GM/DL 32.3-36.5 L (BEAKER) (test code = 752) RED CELL DISTRIBUTION WIDTH 15.0 % 11.6-14.4 H (BEAKER) (test code = 412) PLATELET COUNT (BEAKER) (test 231 K/CU MM 150-450 code = 756) MEAN PLATELET VOLUME (BEAKER) 9.5 fL 9.4-12.4 (test code = 754) NUCLEATED RED BLOOD CELLS 0 /100 WBC 0-0 (BEAKER) (test code = 413) NEUTROPHILS RELATIVE PERCENT 67 % (BEAKER) (test code = 429) LYMPHOCYTES RELATIVE PERCENT 26 % (BEAKER) (test code = 430) MONOCYTES RELATIVE PERCENT 6 % (BEAKER) (test code = 431) EOSINOPHILS RELATIVE PERCENT 0 % (BEAKER) (test code = 432) BASOPHILS RELATIVE PERCENT 0 % (BEAKER) (test code = 437) NEUTROPHILS ABSOLUTE COUNT 6.95 K/ L 1.78-5.38 H (BEAKER) (test code = 670) LYMPHOCYTES ABSOLUTE COUNT 2.66 K/ L 1.32-3.57 (BEAKER) (test code = 414) MONOCYTES ABSOLUTE COUNT (BEAKER) 0.64 K/ L 0.30-0.82 (test code = 415) EOSINOPHILS ABSOLUTE COUNT 0.01 K/ L 0.04-0.54 L (BEAKER) (test code = 416) BASOPHILS ABSOLUTE COUNT (BEAKER) 0.02 K/ L 0.01-0.08 (test code = 417) IMMATURE GRANULOCYTES-RELATIVE 1 % 0-1 PERCENT (BEAKER) (test code = 2801) [id number] 07:12:00 Test Item Value Reference Range Interpretation Comments PHOSPHORUS (BEAKER) (test code = 3.8 mg/dL 2.3-4.7 604) [id number] 07:12:00 Test Item Value Reference Range Interpretation Comments MAGNESIUM (BEAKER) (test code = 1.9 mg/dL 1.6-2.6 627) COMPREHENSIVE METABOLIC [id number] 07:12:00 Test Item Value Reference Range Interpretation Comments TOTAL PROTEIN 6.8 gm/dL 6.0-8.3 (BEAKER) (test code = 770) ALBUMIN (BEAKER) 3.8 g/dL 3.5-5.0 (test code = 1145) ALKALINE PHOSPHATASE 70 U/L 40-150 (BEAKER) (test code = 346) BILIRUBIN TOTAL 2.0 mg/dL 0.2-1.2 H (BEAKER) (test code = 377) SODIUM (BEAKER) (test 136 meq/L 136-145 code = 381) POTASSIUM (BEAKER) 4.0 meq/L 3.5-5.1 (test code = 379) CHLORIDE (BEAKER) 107 meq/L 98-107 (test code = 382) CO2 (BEAKER) (test 21 meq/L 22-29 L code = 355) BLOOD UREA NITROGEN 13 mg/dL 7-21 (BEAKER) (test code = 354) CREATININE (BEAKER) 0.87 mg/dL 0.57-1.25 (test code = 358) GLUCOSE RANDOM 110 mg/dL 70-105 H (BEAKER) (test code = 652) CALCIUM (BEAKER) 8.9 mg/dL 8.4-10.2 (test code = 697) AST (SGOT) (BEAKER) 13 U/L 5-34 (test code = 353) ALT (SGPT) (BEAKER) 10 U/L 6-55 (test code = 347) EGFR (BEAKER) (test 94 mL/min/1.73 ESTIMA LUIS GFR IS code = 1092) sq m NOT ACCURATE CREATININE CLEARANCE IN PREDICTING GLOMERULAR FILTRATION RATE . ESTIMATED GFR I S NOT APPLICABLE FOR DIALYSIS PATIEN TS. Specimen slightly ictericC-REACTIVE [id number] 07:12:00 Test Item Value Reference Range Interpretation Comments C-REACTIVE PROTEIN (BEAKER) (test 1.08 mg/dL 0.00-0.50 H code = 676) CBC W/PLT COUNT & AUTO [id number] 06:58:00 Test Item Value Reference Range Interpretation Comments WHITE BLOOD CELL COUNT (BEAKER) 15.6 K/ L 3.5-10.5 H (test code = 775) RED BLOOD CELL COUNT (BEAKER) 5.68 M/ L 4.63-6.08 (test code = 761) HEMOGLOBIN (BEAKER) (test code = 13.1 GM/DL 13.7-17.5 L 410) HEMATOCRIT (BEAKER) (test code = 41.5 % 40.1-51.0 411) MEAN CORPUSCULAR VOLUME (BEAKER) 73.1 fL 79.0-92.2 L (test code = 753) MEAN CORPUSCULAR HEMOGLOBIN 23.1 pg 25.7-32.2 L (BEAKER) (test code = 751) MEAN CORPUSCULAR HEMOGLOBIN CONC 31.6 GM/DL 32.3-36.5 L (BEAKER) (test code = 752) RED CELL DISTRIBUTION WIDTH 14.7 % 11.6-14.4 H (BEAKER) (test code = 412) PLATELET COUNT (BEAKER) (test 253 K/CU MM 150-450 code = 756) MEAN PLATELET VOLUME (BEAKER) 9.5 fL 9.4-12.4 (test code = 754) NUCLEATED RED BLOOD CELLS 0 /100 WBC 0-0 (BEAKER) (test code = 413) NEUTROPHILS RELATIVE PERCENT 84 % (BEAKER) (test code = 429) LYMPHOCYTES RELATIVE PERCENT 11 % (BEAKER) (test code = 430) MONOCYTES RELATIVE PERCENT 4 % (BEAKER) (test code = 431) EOSINOPHILS RELATIVE PERCENT 0 % (BEAKER) (test code = 432) BASOPHILS RELATIVE PERCENT 0 % (BEAKER) (test code = 437) NEUTROPHILS ABSOLUTE COUNT 13.12 K/ L 1.78-5.38 H (BEAKER) (test code = 670) LYMPHOCYTES ABSOLUTE COUNT 1.75 K/ L 1.32-3.57 (BEAKER) (test code = 414) MONOCYTES ABSOLUTE COUNT (BEAKER) 0.59 K/ L 0.30-0.82 (test code = 415) EOSINOPHILS ABSOLUTE COUNT 0.00 K/ L 0.04-0.54 L (BEAKER) (test code = 416) BASOPHILS ABSOLUTE COUNT (BEAKER) 0.03 K/ L 0.01-0.08 (test code = 417) IMMATURE GRANULOCYTES-RELATIVE 1 % 0-1 PERCENT (BEAKER) (test code = 0598)
[2020-07-27 10:34] LABS: Urine Blood 2+ (Negative); Urine Glucose Negative (Negative); Urine Protein Negative (Negative); Urine Specific Gravity >=1.030 (1.005-1.030)
[2020-07-27 10:56] LABS: Absolute Lymphocytes (CBC) 1.1 K/uL (0.7-4.9); Basophils % 0.2 % (0-1.3); Hematocrit 40.4 % (39.6-49.0); Lymphocytes % 7.3 % (15.3-44.8); MPV 7.6 fL (7.6-11.3); RBC Red Blood Cell Count 5.59 M/uL (4.33-5.43)
[2020-07-27 10:58] LABS: Urine Bacteria 20-50 /HPF (NONE SEEN); Urine Mucus MOD /HPF (NONE SEEN); Urine RBC 20-50 /HPF (NONE SEEN)
--- NOTE | 2020-07-27 10:59 | RAD REPORT ---
EXAM DESCRIPTION: CT - Stone Protocol - 07/27/2020 10:29 am CLINICAL HISTORY: ABD PAIN, history of bowel resection not otherwise specified, history of Crohn's d isease COMPARISON: Abdomen Pelvis W Contrast dated 07/19/2019; Abdomen Pelvis W Contrast dated 12/05/2018 TECHNIQUE: Axial 3 mm thick images were obtained without oral or IV contrast. The [id number] span s the entirety of the system including uppermost abdomen and lung bases. All CT scans are performed using dose optimization technique as appropriate and may include automated exposure control or mA/KV adjustment according to patient size. FINDINGS: No acute lung base finding. No cardiomegaly or pericardial effusion. No hydronephrosis is present. Fullness of each renal pelvis matches the 2019 study. Patient has nonob structing calyx or pyramid calculi in each kidney. There is a punctate calcification along the left p osterior bladder wall. This appears to be superior to the UVJ. A punctate bladder calculus is possibl e. Finding is probably not significant given the separately detailed bowel findings. No suspicious re nal masses. Isodense masses and pyelonephritis are not excluded on a stone protocol CT scan. No signi ficant adrenal finding. Bladder is too contracted to allow accurate assessment. Imaged portions of the liver, spleen and pancreas show no suspicious findings on non-contrast imaging . No gallbladder or biliary tree abnormality identified. No gastric dilatation or gastric wall thickening. Proximal small bowel shows no acute finding. There is a long segment of the distal ileum, including the terminal ileum, that shows circumferential wall thickening and edema. There is mild stranding in the adjacent fat. Several small lymph nodes are seen in the mesenteric fat. Appendix is not well defined. Acute appendicitis is not suspected. Patient h as moderately large stool volume filling a tortuous and redundant colon. No free air, free fluid or pneumatosis. Small fat only left inguinal hernia is present. No ascites, o mental thickening or bulky lymphadenopathy. No acute bone finding. No acute vascular finding on a noncontrast study. IMPRESSION: Acute Crohn's type inflammatory changes to the distal ileum with wall thickening, edema and adjacent stranding. Small mesenteric lymph nodes are present. No obstruction, free air or surgically emergent finding. Punctate calcification along the posterior left bladder wall is believed to be a small intraluminal s tone. This is probably not an acute finding given the acute ileum abnormality.
[2020-07-27 11:35] LABS: Albumin 3.6 g/dL (3.4-5.0); Bilirubin Direct 0.1 mg/dL (0-0.2); Bilirubin Total 0.6 mg/dL (0.2-1.0); Potassium 4.6 mmol/L (3.5-5.1); Protein, Total 7.3 g/dL (6.4-8.2)
--- NOTE | 2020-07-27 11:44 | EDPHYS ---
Physician Documentation [facility] Name: Dank Helton Age: 50 yrs Sex: Male : 1970 Arrival Date: 07/27/2020 Time: 09:04 Bed 15 Private MD: ED Physician Jameel Michel HPI: 07/27 11:39 This 50 yrs old Male presents to ER via Ambulatory with complaints of Low Back rn Pain - right side. 11:39 The patient presents with pain that is acute. The symptoms are located in the low back. rn The pain radiates to the abdomen. 11:39 Onset: The symptoms/episode began/occurred last night. Modifying factors: The patient rn symptoms are alleviated by nothing, the patient symptoms are aggravated by nothing. Associated signs and symptoms: Pertinent positives: abdominal pain, dysuria, Pertinent negatives: fever, incontinence, nausea, numbness, tingling, urinary retention. Severity of symptoms: At their worst the symptoms were moderate, in the emergency department the symptoms have improved. The patient has experienced similar episodes in the past. Reports right flank/back pain, radiates to right abdomen, began last night, feels different from crohn's flares in past, no fever, + mild dysuria. Now symptoms have improved. . Historical: - Allergies: 09:16 No Known Allergies; jd3 - Home Meds: 09:16 None [Active]; jd3 - PMHx: 09:16 Crohn's; jd3 - PSHx: 09:16 Abdominal resection; jd3 - Immunization history:: Adult Immunizations up to date. - Social history:: Smoking status: Patient denies any tobacco usage or history of. - Family history:: not pertinent. - Hospitalizations: : No recent hospitalization is reported. ROS: 11:39 Constitutional: Negative for fever, chills, and weight loss, Eyes: Negative for injury, rn pain, redness, and discharge, Neck: Negative for injury, pain, and swelling, Cardiovascular: Negative for chest pain, palpitations, and edema, Respiratory: Negative for shortness of breath, cough, wheezing, and pleuritic chest pain, Abdomen/GI: + right sided abd pain. Back: Negative for injury : Negative for injury, bleeding, discharge, and swelling, MS/Extremity: Negative for injury and deformity, Skin: Negative for injury, rash, and discoloration, Neuro: Negative for headache, weakness, numbness, tingling, and seizure. Exam: 11:39 Constitutional: This is a well developed, well nourished patient who is awake, alert, rn and in no acute distress. Head/Face: Normocephalic, atraumatic. Eyes: Periorbital areas with no swelling, redness, or edema. Cardiovascular: Regular rate and rhythm. No pulse deficits. Respiratory: No increased work of breathing, no retractions or nasal flaring. Abdomen/GI: soft, mild tenderness right lower abdomen. Back: No spinal tenderness. No costovertebral tenderness. Skin: Warm, dry with normal turgor. Normal color with no rashes, no lesions, and no evidence of cellulitis. MS/ Extremity: Pulses equal, no cyanosis. Neurovascular intact. Full, normal range of motion. Equal circumference. Neuro: Awake and alert, GCS 15 Vital Signs: 09:16 BP 148 / 88; Pulse 56; Resp 18 S; Temp 97.6(TE); Pulse Ox 100% on R/A; Weight 58.97 kg jd3 (R); Height 5 ft. 3 in. (160.02 cm) (R); Pain 9/10; 10:30 BP 117 / 66; Pulse 60; Resp 18; Pulse Ox 100% on R/A; kg 11:00 BP 102 / 64; Pulse 53; Resp 18; Pulse Ox 100% on R/A; kg 11:30 BP 111 / 75; Pulse 55; Resp 17; Pulse Ox 99% on R/A; kg 12:00 BP 95 / 76; Pulse 60; Resp 18; Pulse Ox 98% on R/A; kg 12:51 BP 105 / 74; Pulse 50; Resp 15; Pulse Ox 100% on R/A; kg 09:16 Body Mass Index 23.03 (58.97 kg, 160.02 cm) jd3 MDM: 09:56 Patient medically screened. rn 11:39 Differential diagnosis: UTI, kidney stones, crohn's flare. Data reviewed: vital signs, rn nurses notes, lab test result(s), radiologic studies, CT scan, and as a result, I will discharge patient. Counseling: I had a detailed discussion with the patient and/or guardian regarding: the historical points, exam findings, and any diagnostic results supporting the discharge/admit diagnosis, lab results, radiology results, the need for outpatient follow up, to return to the emergency department if symptoms worsen or persist or if there are any questions or concerns that arise at home. Response to treatment: the patient's symptoms have markedly improved after treatment, and as a result, I will discharge patient. Special discussion: I discussed with the patient/guardian in detail that at this point there is no indication for admission to the hospital. It is understood, however, that if the symptoms persist or worsen the patient needs to return immediately for re-evaluation. ED course: Pt feels much better, ct shows possible recently passed stone, story sounds like recently passed stone, and 2+ blood in urine. Also showing signs of ileal inflammation, will dc home with steroids and f/u. . 07/27 10:06 Order name: Basic Metabolic Panel 07/27 10:06 Order name: CBC with Diff 07/27 10:06 Order name: Hepatic Function 07/27 10:06 Order name: Lipase 07/27 10:06 Order name: Urine Microscopic Only; Complete Time: 11:07 07/27 10:06 Order name: Basic Metabolic Panel [facility] 07/27 10:06 Order name: CT Stone Protocol; Complete Time: 11:07 07/27 10:33 Order name: Urine Dipstick-Ancillary; Complete Time: 10:47 [facility] 07/27 10:59 Order name: Urine Culture [facility] 07/27 11:01 Order name: CBC Smear Scan [facility] 07/27 10:06 Order name: IV Saline Lock 07/27 10:06 Order name: Labs collected and sent 07/27 10:06 Order name: Urine Dipstick-Ancillary (obtain specimen) rn Administered Medications: 11:45 Drug: Zofran (Ondansetron) 4 mg Route: IVP; Site: right antecubital; kg 12:18 Follow up: Response: No adverse reaction; Marked relief of symptoms kg 11:45 Drug: Demerol (meperidine) 50 mg Route: IVP; Site: right antecubital; kg 12:18 Follow up: Response: No adverse reaction; Marked relief of symptoms kg 11:45 Drug: Magnesium Sulfate 1 grams Route: IVPB; Infused Over: 1 hrs; Site: right kg antecubital; 12:48 Follow up: Response: No adverse reaction; IV Status: Completed infusion; IV Intake: kg 100ml 11:45 Drug: Flomax (tamsulosin) 0.4 mg Route: PO; kg 12:18 Follow up: Response: No adverse reaction kg 12:10 Drug: SOLU-Medrol (methylPrednisoLONE) 125 mg Route: IVP; Site: right antecubital; kg 12:19 Follow up: Response: No adverse reaction kg Disposition: 07/27/20 11:43 Discharged to Home. Impression: Crohn's disease [regional enteritis], Kidney stone. - Condition is Stable. - Discharge Instructions: Crohn Disease, Kidney Stones. - Prescriptions for Medrol (Kevin) 4 mg Oral Tablets, Dose Pack - take 1 tablet by ORAL route as directed - follow package instructions; 1 packet. - Medication Reconciliation Form, Thank You Letter, Antibiotic Education, Prescription Opioid Use form. - Follow up: Private Physician; When: As needed; Reason: Recheck today's complaints, Re-evaluation by your physician. - Problem is new. - Symptoms have improved. Signatures: Dispatcher [employer] EDMS Jameel Michel MD MD rn Davies, Jonathon, RN RN jd3 Graham, Kristen kg Corrections: (The following items were deleted from the chart) 11:41 11:39 Constitutional: Negative for fever, chills, and weight loss, Eyes: Negative for rn injury, pain, redness, and discharge, Neck: Negative for injury, pain, and swelling, Cardiovascular: Negative for chest pain, palpitations, and edema, Respiratory: Negative for shortness of breath, cough, wheezing, and pleuritic chest pain, Abdomen/GI: + right sided abd pain. Back: Negative for injury and pain, : Negative for injury, bleeding, discharge, and swelling, MS/Extremity: Negative for injury and deformity, Skin: Negative for injury, rash, and discoloration, Neuro: Negative for headache, weakness, numbness, tingling, and seizure, rn 12:52 11:43 07/27/2020 11:43 Discharged to Home. Impression: Crohn's disease [regional kg enteritis]; Kidney stone. Condition is Stable. Forms are Medication Reconciliation Form, Thank You Letter, Antibiotic Education, Prescription Opioid Use. Follow up: Private Physician; When: As needed; Reason: Recheck today's complaints, Re-evaluation by your physician. Problem is new. Symptoms have improved. rn
--- NOTE | 2020-07-27 11:44 | ER ---
Nurse's Notes [facility] Name: Dank Helton Age: 50 yrs Sex: Male : 1970 Arrival Date: 07/27/2020 Time: 09:04 Bed 15 Private MD: Diagnosis: Crohn's disease [regional enteritis];Kidney stone Presentation: 07/27 09:14 Chief complaint: Spouse and/or significant other states: "he has Crohn's and has is jd3 having very bad stomach pain. he took alive this morning, but it is not working.". Coronavirus screen: At this time, the client does not indicate any symptoms associated with coronavirus-19. Ebola Screen: Patient negative for fever greater than or equal to 101.5 degrees Fahrenheit, and additional compatible Ebola Virus Disease symptoms. Initial Sepsis Screen: Does the patient meet any 2 criteria? No. Patient's initial sepsis screen is negative. Does the patient have a suspected source of infection? No. Patient's initial sepsis screen is negative. Risk Assessment: Do you want to hurt yourself or someone else? Patient reports no desire to harm self or others. Onset of symptoms was July 27, 2020. 09:14 Method Of Arrival: Ambulatory jd3 09:14 Acuity: NITA 3 jd3 Historical: - Allergies: 09:16 No Known Allergies; jd3 - Home Meds: 09:16 None [Active]; jd3 - PMHx: 09:16 Crohn's; jd3 - PSHx: 09:16 Abdominal resection; jd3 - Immunization history:: Adult Immunizations up to date. - Social history:: Smoking status: Patient denies any tobacco usage or history of. - Family history:: not pertinent. - Hospitalizations: : No recent hospitalization is reported. Screenin:51 Abuse screen: Denies threats or abuse. Nutritional screening: No deficits noted. kg Tuberculosis screening: No symptoms or risk factors identified. Fall Risk None identified. No fall in past 12 months (0 pts). No secondary diagnosis (0 pts). No IV (0 pts). Ambulatory Aid- None/Bed Rest/Nurse Assist (0 pts). Gait- Normal/Bed Rest/Wheelchair (0 pts) Mental Status- Oriented to own ability (0 pts). Total Estrada Fall Scale indicates No Risk (0-24 pts). Assessment: 10:48 General: Appears in no apparent distress. Behavior is calm, cooperative, appropriate kg for age, quiet. Pain: Complains of pain in anterior aspect of right lateral abdomen and right lower quadrant Pain radiates to right low back Pain currently is 5 out of 10 on a pain scale. at worst was 10 out of 10 on a pain scale. level that patient reports is acceptable is 5 out of 10 on a pain scale. Quality of pain is described as "unable to describe pain." Pain began 4 hours ago. Is intermittent. Neuro: No deficits noted. Level of Consciousness is awake, alert, obeys commands, Oriented to person, place, time, situation. Cardiovascular: No deficits noted. Heart tones S1 S2. Respiratory: No deficits noted. Breath sounds are clear bilaterally. GI: No deficits noted. Bowel sounds present X 4 quads. Abd is soft and non tender X 4 quads. 10:50 : No deficits noted. EENT: No deficits noted. Derm: No deficits noted. kg Musculoskeletal: No deficits noted. Vital Signs: 09:16 BP 148 / 88; Pulse 56; Resp 18 S; Temp 97.6(TE); Pulse Ox 100% on R/A; Weight 58.97 kg jd3 (R); Height 5 ft. 3 in. (160.02 cm) (R); Pain 9/10; 10:30 BP 117 / 66; Pulse 60; Resp 18; Pulse Ox 100% on R/A; kg 11:00 BP 102 / 64; Pulse 53; Resp 18; Pulse Ox 100% on R/A; kg 11:30 BP 111 / 75; Pulse 55; Resp 17; Pulse Ox 99% on R/A; kg 12:00 BP 95 / 76; Pulse 60; Resp 18; Pulse Ox 98% on R/A; kg 12:51 BP 105 / 74; Pulse 50; Resp 15; Pulse Ox 100% on R/A; kg 09:16 Body Mass Index 23.03 (58.97 kg, 160.02 cm) jd3 ED Course: 09:04 Patient arrived in ED. am2 09:15 Triage completed. jd3 09:17 Arm band placed on. jd3 09:56 Jameel Michel MD is Attending Physician. rn 10:08 Fanny Menchaca is Primary Nurse. kg 10:29 CT Stone Protocol In Process Unspecified. EDMS 10:48 Inserted saline lock: 20 gauge in right antecubital area, using aseptic technique. kg 12:51 No provider procedures requiring assistance completed. IV discontinued, intact, kg bleeding controlled, No redness/swelling at site. Pressure dressing applied. 12:52 Patient has correct armband on for positive identification. Placed in gown. Bed in low kg position. Call light in reach. Side rails up X 1. Administered Medications: 11:45 Drug: Zofran (Ondansetron) 4 mg Route: IVP; Site: right antecubital; kg 12:18 Follow up: Response: No adverse reaction; Marked relief of symptoms kg 11:45 Drug: Demerol (meperidine) 50 mg Route: IVP; Site: right antecubital; kg 12:18 Follow up: Response: No adverse reaction; Marked relief of symptoms kg 11:45 Drug: Magnesium Sulfate 1 grams Route: IVPB; Infused Over: 1 hrs; Site: right kg antecubital; 12:48 Follow up: Response: No adverse reaction; IV Status: Completed infusion; IV Intake: kg 100ml 11:45 Drug: Flomax (tamsulosin) 0.4 mg Route: PO; kg 12:18 Follow up: Response: No adverse reaction kg 12:10 Drug: SOLU-Medrol (methylPrednisoLONE) 125 mg Route: IVP; Site: right antecubital; kg 12:19 Follow up: Response: No adverse reaction kg Intake: 12:48 IV: 100ml; Total: 100ml. kg Outcome: 11:43 Discharge ordered by . rn 12:52 Discharged to home ambulatory, with family. kg 12:52 Condition: improved 12:52 Discharge instructions given to patient, family, Instructed on discharge instructions, follow up and referral plans. Demonstrated understanding of instructions, follow-up care, medications, Prescriptions given X 1. 12:52 Patient left the ED. kg Signatures: Dispatcher [employer] EDMS Jameel Michel MD MD rn Moreno, Amanda am2 Davies, Jonathon, RN RN jd3 Graham, Kristen kg Corrections: (The following items were deleted from the chart) 09:17 09:14 Chief complaint: Spouse and/or significant other states: "he has Cronies and has jd3 is having very bad stomach pain. he took alive this morning, but it is not working." jd3
[2020-07-27] MEDS ORDERED: TAMSULOSIN 0.4 MG SR CAP ONE (12:04)
[2020-07-27] MEDS ORDERED: MAGNESIUM SULFATE 1 gm IVPB 1 GM/100 ML BAG IV ONE (12:04)
[2020-07-27] MEDS ORDERED: MEPERIDINE HCL 50 MG/ML ONE (12:04)
[2020-07-27] MEDS ORDERED: ONDANSETRON 4 MG/2 ML VIAL ONE (12:04)
[2020-07-27] MEDS ORDERED: METHYLPREDNISOLONE 125 MG INJ ONE (12:28)
[2020-07-27 13:00] LABS: Blood Morphology Comment NOT SEEN (NOT SEEN); Platelet Estimate ADEQ; White Blood Cell Scan OK (OK)
[2020-07-27 13:04] VITALS: TEMP 97.6
[2020-07-27 13:09] VITALS: BP 105/74; O2SAT 100
== END 2020-07-27 12:52 | disposition home or self-care (01) ==
LOC: ER 08:59
DX: K50.90 Crohn's disease, unspecified, without complications (principal); N20.0 Calculus of kidney
CPT/HCPCS: 87088; 85025; 87086; 80048; 36415; 80076; 83690; 76377; 74176; J3475; J2175; J2930; J2405; 81003; 81015; 96365; 96375; 99284

== ENCOUNTER 2020-08-29 07:11 | Emergency (ER) | payer OTHER ==
[2020-08-29] MEDS ORDERED: METHYLPREDNISOLONE 125 MG INJ ONE (07:51)
[2020-08-29] MEDS ORDERED: ONDANSETRON 4 MG/2 ML VIAL ONE (07:52)
[2020-08-29] MEDS ORDERED: NA CHLORIDE 0.9% 1,000 ML ONE (07:52)
[2020-08-29 08:06] LABS: Absolute Lymphocytes (CBC) 1.2 K/uL (0.7-4.9); Basophils % 0.3 % (0-1.3); Hematocrit 41.4 % (39.6-49.0); MPV 7.2 fL (7.6-11.3)
[2020-08-29 08:24] LABS: Albumin 3.6 g/dL (3.4-5.0); Bilirubin Direct 0.2 mg/dL (0-0.2); Bilirubin Total 1.2 mg/dL (0.2-1.0); Potassium 4.2 mmol/L (3.5-5.1); Protein, Total 7.3 g/dL (6.4-8.2)
--- NOTE | 2020-08-29 09:05 | RAD REPORT ---
EXAM DESCRIPTION: CT - Abdomen Pelvis W Contrast - 08/29/2020 8:48 am CLINICAL HISTORY: ABD PAIN, history of Crohn's disease COMPARISON: Abdomen Pelvis W Contrast dated 07/19/2019; Abdomen Pelvis W Contrast dated 12/05/2018 TECHNIQUE: Biphasic, helical CT imaging of the abdomen and pelvis was performed following 100 ml non -ionic IV contrast. No oral contrast administered. All CT scans are performed using dose optimization technique as appropriate and may include automated exposure control or mA/KV adjustment according to patient size. FINDINGS: No suspicious findings in the lung bases. The liver, spleen, and pancreas show no suspicious findings. Gallbladder and biliary tree are also wi thout suspicious finding. Symmetric renal function is seen with no hydronephrosis or suspicious renal mass. No pyelonephritis o r acute parenchymal process. No bladder abnormalities. No adrenal abnormalities. Fluid-filled nondilated stomach is present. No acute stomach or duodenum finding seen. Proximal jejun um is unremarkable. Multiple dilated small bowel loops are present from the distal ileum to the ileoc ecal valve. In the distal ileum there is circumferential wall thickening. Fecalized bowel content pre sent in the distal ileum. There are multiple strictures in the distal small bowel. Overall pattern is similar to slightly worse than comparison imaging. Numerous reactive mesenteric lymph nodes are pres ent in the central abdomen and right lower quadrant. No bulky lymphadenopathy. No free air, free fluid or inflammatory stranding. Small fat only left inguinal hernia present. No suspicious bony findings. IMPRESSION: Multiple dilated distal small bowel loops with fecalized bowel content, multiple loops s howing circumferential wall thickening, and multiple areas of stricture are seen in the distal ileum and ileocecal valve region. There is no free air or other surgically emergent finding. This Crohn's ileitis and postinflammatory stricture pattern is similar to slightly worse than the two comparison studies.
[2020-08-29] MEDS ORDERED: CIPROFLOXACIN 400mg IV 400 MG/200 ML BAG IV ONE (09:55)
[2020-08-29] MEDS ORDERED: METRONIDAZOLE 500mg IVPB 500 MG/100 ML BAG IV ONE (09:55)
--- NOTE | 2020-08-29 10:21 | ER ---
Nurse's Notes [facility] Name: Dank Helton Age: 50 yrs Sex: Male : 1970 Arrival Date: 08/29/2020 Time: 07:13 Bed 16 Private MD: Diagnosis: Crohn's disease [regional enteritis];Crohn's disease of small intestine-With strictures Presentation: 08/29 07:21 Chief complaint: Patient states: L sided abd pain with N/V since last night. No fever. ll1 Slight dysuria yesterday. Coronavirus screen: Client denies travel out of the [place] in the last 14 days. At this time, the client does not indicate any symptoms associated with coronavirus-19. Ebola Screen: Patient denies travel to an Ebola-affected area in the 21 days before illness onset. Initial Sepsis Screen: Does the patient meet any 2 criteria? No. Patient's initial sepsis screen is negative. Does the patient have a suspected source of infection? Yes: Acute abdominal pain. Risk Assessment: Do you want to hurt yourself or someone else? Patient reports no desire to harm self or others. Onset of symptoms was August 28, 2020. 07:21 Method Of Arrival: Ambulatory ll1 07:21 Acuity: NITA 3 ll1 Historical: - Allergies: 07:20 No Known Allergies; ll1 - PMHx: 07:14 Crohn's; ll1 - PSHx: 07:14 Abdominal resection; ll1 - Immunization history:: Flu vaccine is not up to date. - Social history:: Smoking status: Patient/guardian denies using tobacco, Stopped _ months ago 8. - Family history:: not pertinent. - Hospitalizations: : No recent hospitalization is reported. Screenin:23 Abuse screen: Denies threats or abuse. Nutritional screening: No deficits noted. rb3 Tuberculosis screening: No symptoms or risk factors identified. Fall Risk None identified. Assessment: 07:23 General: Appears in no apparent distress. Behavior is calm, cooperative. Pain: rb3 Complains of pain in left upper quadrant and left lower quadrant Pain began last night. Neuro: Level of Consciousness is awake, alert, obeys commands, Oriented to person, place, time, situation. Cardiovascular: Patient's skin is warm and dry. Respiratory: Airway is patent Respiratory effort is even, unlabored, Respiratory pattern is regular, symmetrical. GI: Reports nausea, vomiting. 08:00 Reassessment: Patient appears in no apparent distress at this time. Patient and/or rb3 family updated on plan of care and expected duration. Pain level reassessed. Patient is alert, oriented x 3, equal unlabored respirations, skin warm/dry/pink. 08:40 Reassessment: Patient appears in no apparent distress at this time. pt. went to CT. rb3 09:10 Reassessment: Patient appears in no apparent distress at this time. No changes from rb3 previously documented assessment. 09:47 Reassessment: Patient appears in no apparent distress at this time. Patient and/or rb3 family updated on plan of care and expected duration. Pain level reassessed. Patient is alert, oriented x 3, equal unlabored respirations, skin warm/dry/pink. Vital Signs: 07:21 BP 116 / 81; Pulse 78; Resp 16; Temp 98.5; Pulse Ox 100% ; Weight 61.23 kg; Height 5 ll1 ft. 3 in. (160.02 cm); Pain 7/10; 08:30 BP 103 / 66; Pulse 63; Resp 17; Pulse Ox 100% ; rb3 09:50 BP 108 / 71; Pulse 66; Resp 16; Pulse Ox 100% ; rb3 07:21 Body Mass Index 23.91 (61.23 kg, 160.02 cm) ll1 ED Course: 07:13 Patient arrived in ED. as 07:13 Arm band placed on Patient placed in an exam room, on a stretcher. ll1 07:18 Jameel Michel MD is Attending Physician. rn 07:22 Triage completed. ll1 07:23 Patient has correct armband on for positive identification. Bed in low position. Call rb3 light in reach. Side rails up X 1. Pulse ox on. NIBP on. 07:27 Janae Coley, RN is Primary Nurse. rb3 07:42 Inserted saline lock: 20 gauge in left antecubital area, using aseptic technique. Blood rb3 collected. 08:48 CT Abd/Pelvis - IV Contrast Only In Process Unspecified. EDMS 10:20 Venkat Pal MD is Referral Physician. rn 11:32 No provider procedures requiring assistance completed. IV discontinued, intact, rb3 bleeding controlled, No redness/swelling at site. Pressure dressing applied. Administered Medications: 07:42 Drug: NS 0.9% 1000 ml Route: IV; Rate: 1000 ml; Site: left antecubital; rb3 08:50 Follow up: IV Status: Completed infusion rb3 07:42 Drug: SOLU-Medrol (methylPrednisoLONE) 125 mg Route: IVP; Site: left antecubital; rb3 08:00 Follow up: Response: No adverse reaction rb3 07:42 Drug: Zofran (Ondansetron) 4 mg Route: IVP; Site: left antecubital; rb3 08:00 Follow up: Response: No adverse reaction rb3 09:35 Drug: Flagyl (metroNIDAZOLE) 500 mg Volume: 100 ml; Route: IVPB; Rate: 200 ml/hr; rb3 Infused Over: 30 mins; Site: left antecubital; 09:45 Drug: Cipro (ciprofloxacin) 400 mg Volume: 200 ml; Route: IVPB; Infused Over: 60 mins; rb3 Site: left antecubital; Outcome: 10:21 Discharge ordered by . rn 11:32 Patient left the ED. [facility] 11:32 Discharged to home ambulatory, with family. rb3 11:32 Condition: stable 11:32 Discharge instructions given to patient, Instructed on discharge instructions, follow up and referral plans. medication usage, Demonstrated understanding of instructions, follow-up care, medications, Prescriptions given X 5 Signatures: Dispatcher [employer] Kay Bennett Roman, MD MD rn Martinez, Maria [facility] Erlin Wolff RN RN 1 Janae Coley RN RN rb3
--- NOTE | 2020-08-29 10:21 | EDPHYS ---
Physician Documentation [facility] Name: Dank Helton Age: 50 yrs Sex: Male : 1970 Arrival Date: 08/29/2020 Time: 07:13 Bed 16 Private MD: ED Physician Jameel Michel HPI: 08/29 07:44 This 50 yrs old Male presents to ER via Ambulatory with complaints of crohns rn flare. 07:44 The patient presents with abdominal pain in the left lower quadrant. Onset: The rn symptoms/episode began/occurred 2 day(s) ago. The symptoms do not radiate. Associated signs and symptoms: Pertinent positives: nausea and vomiting, blood in stools, Pertinent negatives: fever, hematuria, shortness of breath, vomiting blood. The symptoms are described as achy, crampy. Modifying factors: The symptoms are alleviated by nothing, the symptoms are aggravated by touching the area. Severity of pain: At its worst the pain was moderate in the emergency department the pain is unchanged. The patient has experienced similar episodes in the past. The patient has not recently seen a physician. Reports thinks is having crohn's flare, + abd pain with nausea/vomiting and blood in stools for 2 days. No fever. Similar to previous episodes. Last BM yesterday. . Historical: - Allergies: 07:20 No Known Allergies; ll1 - PMHx: 07:14 Crohn's; ll1 - PSHx: 07:14 Abdominal resection; ll1 - Immunization history:: Flu vaccine is not up to date. - Social history:: Smoking status: Patient/guardian denies using tobacco, Stopped _ months ago 8. - Family history:: not pertinent. - Hospitalizations: : No recent hospitalization is reported. ROS: 07:44 Constitutional: Negative for fever, chills, and weight loss, Eyes: Negative for injury, rn pain, redness, and discharge, Neck: Negative for injury, pain, and swelling, Cardiovascular: Negative for chest pain, palpitations, and edema, Respiratory: Negative for shortness of breath, cough, wheezing, and pleuritic chest pain, Abdomen/GI: + abd pain/nausea/vomiting Back: Negative for injury and pain, : Negative for injury, bleeding, discharge, and swelling, MS/Extremity: Negative for injury and deformity, Skin: Negative for injury, rash, and discoloration, Neuro: Negative for headache, weakness, numbness, tingling, and seizure. Exam: 07:44 Constitutional: This is a well developed, well nourished patient who is awake, alert, rn and in no acute distress. Head/Face: Normocephalic, atraumatic. Eyes: Pupils equal round and reactive to light, extra-ocular motions intact. Lids and lashes normal. Conjunctiva and sclera are non-icteric and not injected. Cornea within normal limits. Periorbital areas with no swelling, redness, or edema. ENT: dry MM Cardiovascular: Regular rate and rhythm. No pulse deficits. Respiratory: No increased work of breathing, no retractions or nasal flaring. Abdomen/GI: soft, + mild tenderness LLQ Skin: Warm, dry MS/ Extremity: Pulses equal, no cyanosis. Neuro: Awake and alert, GCS 15 Vital Signs: 07:21 BP 116 / 81; Pulse 78; Resp 16; Temp 98.5; Pulse Ox 100% ; Weight 61.23 kg; Height 5 ll1 ft. 3 in. (160.02 cm); Pain 7/10; 08:30 BP 103 / 66; Pulse 63; Resp 17; Pulse Ox 100% ; rb3 09:50 BP 108 / 71; Pulse 66; Resp 16; Pulse Ox 100% ; rb3 07:21 Body Mass Index 23.91 (61.23 kg, 160.02 cm) ll1 MDM: 07:18 Patient medically screened. rn 10:19 Differential diagnosis: bowel obstruction, diverticulitis, non-specific abd pain, rn crohn's flare. Data reviewed: vital signs, nurses notes, lab test result(s), radiologic studies, CT scan, and as a result, I will discharge patient. Counseling: I had a detailed discussion with the patient and/or guardian regarding: the historical points, exam findings, and any diagnostic results supporting the discharge/admit diagnosis, lab results, radiology results, the need for outpatient follow up, to return to the emergency department if symptoms worsen or persist or if there are any questions or concerns that arise at home. Response to treatment: the patient's symptoms have markedly improved after treatment, and as a result, I will discharge patient. Special discussion: I discussed with the patient/guardian in detail that at this point there is no indication for admission to the hospital. It is understood, however, that if the symptoms persist or worsen the patient needs to return immediately for re-evaluation. ED course: Spoke with patient about slowly worsening strictures from repeated inflammation, will f/u with GI, has been told about these strictures in past, no acute obstruction today, will dc home with return precautions. . 08/29 07:25 Order name: Basic Metabolic Panel; Complete Time: 09:00 rn 08/29 07:25 Order name: CBC with Diff; Complete Time: 09:00 rn 08/29 07:25 Order name: Hepatic Function; Complete Time: 09:00 rn 08/29 07:25 Order name: CT Abd/Pelvis - IV Contrast Only; Complete Time: 09:09 rn 08/29 07:25 Order name: IV Saline Lock; Complete Time: 07:54 rn 08/29 07:25 Order name: Labs collected and sent; Complete Time: 07:55 rn Administered Medications: 07:42 Drug: NS 0.9% 1000 ml Route: IV; Rate: 1000 ml; Site: left antecubital; rb3 08:50 Follow up: IV Status: Completed infusion rb3 07:42 Drug: SOLU-Medrol (methylPrednisoLONE) 125 mg Route: IVP; Site: left antecubital; rb3 08:00 Follow up: Response: No adverse reaction rb3 07:42 Drug: Zofran (Ondansetron) 4 mg Route: IVP; Site: left antecubital; rb3 08:00 Follow up: Response: No adverse reaction rb3 09:35 Drug: Flagyl (metroNIDAZOLE) 500 mg Volume: 100 ml; Route: IVPB; Rate: 200 ml/hr; rb3 Infused Over: 30 mins; Site: left antecubital; 09:45 Drug: Cipro (ciprofloxacin) 400 mg Volume: 200 ml; Route: IVPB; Infused Over: 60 mins; rb3 Site: left antecubital; Disposition: 08/29/20 10:21 Discharged to Home. Impression: Crohn's disease [regional enteritis], Crohn's disease of small intestine - With strictures. - Condition is Stable. - Discharge Instructions: Crohn Disease. - Prescriptions for Zofran ODT 4 mg Oral tablet,disintegrating - place 1 tablet by TRANSLINGUAL route every 8 hours As needed; 20 tablet. Bentyl 20 mg Oral Tablet - take 1 tablet by ORAL route every 6 hours As needed; 20 tablet. Flagyl 500 mg Oral Tablet - take 1 tablet by ORAL route every 8 hours for 10 days; 30 tablet. Cipro 500 mg Oral Tablet - take 1 tablet by ORAL route every 12 hours for 10 days; 20 tablet. Prednisone 20 mg Oral Tablet - take 1 tablet by ORAL route as directed for 10 days Take 2 tablets by mouths daily for 5 days, followed by 1 tablet by mouth daily for 5 days.; 15 tablet. - Medication Reconciliation Form, Thank You Letter, Antibiotic Education, Prescription Opioid Use, Work release form form. - Follow up: Venkat Pal MD; When: As needed; Reason: Recheck today's complaints, Re-evaluation by your physician. - Problem is an acute exacerbation. - Symptoms have improved. Signatures: Dispatcher [employer] EDMS Jameel Michel MD MD rn Martinez, [facility]5 Erlin Wolff RN RN ll1 Janae Coley RN RN rb3 Corrections: (The following items were deleted from the chart) 11:32 10:21 08/29/2020 10:21 Discharged to Home. Impression: Crohn's disease [regional mh5 enteritis]; Crohn's disease of small intestine - With strictures. Condition is Stable. Forms are Medication Reconciliation Form, Thank You Letter, Antibiotic Education, Prescription Opioid Use. Follow up: Venkat Pal; When: As needed; Reason: Recheck today's complaints, Re-evaluation by your physician. Problem is an acute exacerbation. Symptoms have improved. rn
[2020-08-29 11:50] VITALS: TEMP 98.5; O2SAT 100
[2020-08-29 11:53] VITALS: BP 108/71
== END 2020-08-29 11:32 | disposition home or self-care (01) ==
LOC: ER 07:11
DX: K50.018 Crohn's disease of small intestine with other complication (principal)
CPT/HCPCS: 85025; 80048; 36415; 80076; 74177; Q9967; J7030; J2930; J2405; J0744; 96361; 96374; 96375; 99284